=== PATIENT | female | born 1935 | race Caucasian/White ===

== ENCOUNTER → 2016-03-28 | Outpatient (CLI) | payer MEDICARE, OTHER ==
[~2016-03-28] MED LIST: REGADENOSON INJ 0.4 MG/5 ML DISP.SYRIN IV ONE
--- NOTE | 2016-03-28 14:30 | DRAGON STRESS TEST REPORT ---
INDICATION: Patient with chest pain, dyspnea PROCEDURE REPORT: Nuclear stress test explained to the patient in detail. Risks/benefits were discussed and informed consent was obtained. BASELINE: The patient's baseline heart rate was noted to be 78 bpm with BP of 155/80. Baseline EKG showed sinus rhythm, increased voltage suggestive of LVH. No Baseline ST segment changes noted. Following above being obtained, patient was bolused with regadenoson per protocol. The patient tolerated the Regadenoson bolus well without any significant complaints. At two minutes post-bolus, the patient's heart rate was 83 with BP of 129/68. At three minutes post-Regadenoson bolus, the patient's heart rate was 83 with BP of 131/72. Stress and postprocedure EKGs: EKGs obtained during the procedure and post- procedure did not show any additional STT wave changes. NUCLEAR IMAGING: Nuclear imaging was performed following a protocol. Rest imaging : was performed earlier in the day after patient was injected with a 10.72 mci of technetium sestamibi compound Stress imaging: The patient was bolused with Regadenoson 0.4 mg over 10 seconds. This was followed by normal saline bolus followed by Technetium Sestamibi injection of 33.0 mci followed again by normal saline bolus. Stress imaging was performed according to set protocol. Both rest and stress images were obtained using tomographic technique. EKG gated imaging was also obtained. NUCLEAR INTERPRETATION: Both raw and processed data were used for interpretation. Visual, qualitative, computer generated quantitative data were used. There is good myocardial uptake of Technetium compound. Motion artifact and attenuation artifacts were noted. No definitive areas of transient perfusion defect was noted. No definite fixed perfusion defect noted. EKG gated imaging showed no significant regional wall motion abnormalities. LVEF is noted to be 63. Lung/heart ratio noted to be within normal at 0.33 There is transient ischemic dilatation noted with tid ratio of 1.48. LV cavity noted to be a small which tends to magnify the changes. RV free wall uptake noted to be borderline increased. SUMMARY OF FINDINGS/IMPRESSION: 1. NO SIGNIFICANT EKG CHANGES WITH REGADENOSON BOLUS. 2. NUCLEAR IMAGES SHOWED NO DEFINITIVE AREAS OF TRANSIENT PERFUSION DEFECT OR ISCHEMIA NOTED. 3. NO DEFINITIVE FIXED DEFECTS OR SCAR NOTED. 4. EKG GATED IMAGING SHOWED NORMAL LVEF. NO DEFINITE WALL MOTION ABNORMALITIES NOTED. 5. LUNG/HEART RATIO NOTED TO BE WITHIN NORMAL LIMITS. 6. BORDERLINE TRANSIENT ISCHEMIC DILATATIONS WERE NOTED. THIS IS OF UNCERTAIN SIGNIFICANCE IN THE ABSENCE OF SIGNIFICANT PERFUSION ABNORMALITIES. MOST RECENT LITERATURE REVIEW SUGGEST NO SIGNIFICANT INCREASED RISK OF EVENTS IN THE ABSENCE OF PERFUSION ABNORMALITY. HOWEVER WOULD RECOMMEND CLOSE CARDIOLOGY FOLLOW-UP. 7. CLINICAL CORRELATION IS REQUESTED OCCASIONALLY SINGLE VESSEL DISEASE OR BALANCED ISCHEMIA COULD BE MISSED. ALSO INABILITY TO EXERCISE BY ITSELF LEADS TO INCREASED CARDIOVASCULAR EVENT RATE. STRESS TEST RESULTS WOULD ALSO NEED TO BE INTERPRETED IN THE CONTEXT OF PRETEST PROBABILITY. 8. I AM AVAILABLE FOR CARDIOLOGY CONSULTATION AND FOLLOWUP IF REQUESTED BY PMD. INTERPRETING PHYSICIAN: Bry BOSS BOARD CERTIFIED IN CARDIOVASCULAR DISEASES , NUCLEAR CARDIOLOGY, ECHOCARDIOGRAPHY [facility]
== END ==
LOC: RAD 07:28
PROVIDERS: ATTEND Internal Medicine
DX: R06.09 Other forms of dyspnea (principal)
CPT/HCPCS: 93017; 78452; A9500; J2785; Q9969

== ENCOUNTER → 2016-05-30 | Outpatient (CLI) | payer MEDICARE, OTHER ==
[2016-05-30 16:05] LABS: ABSOLUTE EOSINOPHILS # (AUTO) 0.1 10^3/uL (0.0-0.6); ABSOLUTE LYMPHOCYTES (AUTO) 1.2 10^3/uL (0.5-4.7); ABSOLUTE MONOCYTES (AUTO) 0.4 10^3/uL (0.1-1.4); ABSOLUTE NEUT (AUTO) 2.1 10^3/uL (1.7-8.2); BASOPHILS % (AUTO) 0.8 % (0-2); EOSINOPHILS % (AUTO) 1.3 % (0-6); HEMATOCRIT 37.6 % (36.0-47.0); HEMOGLOBIN 12.8 g/dL (12.0-15.5); HGB HCT DIFFERENCE 0.8; LYMPHOCYTES % (AUTO) 30.8 % (13-45); MEAN CORPUSCULAR HEMOGLOBIN 32.6 pg (27.0-33.4); MEAN CORPUSCULAR HGB CONC 34.1 g/dL (32.0-36.0); MEAN CORPUSCULAR VOLUME 96 fl (80-97); MONOCYTES % (AUTO) 11.3 % (3-13); RED BLOOD COUNT 3.93 10^6/uL (3.72-5.28); RED CELL DISTRIBUTION WIDTH 13.7 % (11.5-14.0); SEGMENTED NEUTROPHILS % (AUTO) 55.8 % (42-78); WHITE BLOOD COUNT 3.8 10^3/uL (4.0-10.5)
[2016-05-30 16:22] LABS: ALANINE AMINOTRANSFERASE 55 U/L (9-52); ALKALINE PHOSPHATASE 70 U/L (38-126); ANION GAP 9 (5-19); ASPARTATE AMINO TRANSFERASE 63 U/L (14-36); BILIRUBIN,DIRECT 0.1 mg/dL (0.0-0.4); BILIRUBIN,TOTAL 0.4 mg/dL (0.2-1.3); BLOOD UREA NITROGEN 17 mg/dL (7-20); CARBON DIOXIDE 29 mmol/L (22-30); CHLORIDE 102 mmol/L (98-107); CREATININE RESULT 0.88 mg/dL (0.52-1.25); GLUCOSE 88 mg/dL (75-110); POTASSIUM 4.1 mmol/L (3.6-5.0); SODIUM 140.1 mmol/L (137-145); TOTAL PROTEIN 6.5 g/dL (6.3-8.2)
[2016-05-30 16:53] LABS: CARCINOEMBRYONIC ANTIGEN 4.8 ng/mL (<3.0)
== END ==
LOC: OD 14:32
PROVIDERS: ATTEND Specialist
DX: R10.9 Unspecified abdominal pain (principal); R97.0 Elevated carcinoembryonic antigen [CEA]; R19.7 Diarrhea, unspecified
CPT/HCPCS: 36415; 80053; 82378; 85025

== ENCOUNTER → 2016-06-22 | Outpatient (CLI) | payer MEDICARE, OTHER | LOC: RAD 08:56 | PROVIDERS: ATTEND Thoracic Surgery (Cardiothoracic Vascular Surgery) | DX: K44.9 Diaphragmatic hernia without obstruction or gangrene (principal) | CPT/HCPCS: 74220 ==

== ENCOUNTER → 2016-08-29 | Outpatient (CLI) | payer MEDICARE, OTHER ==
--- NOTE | 2016-08-29 14:04 | RADIOLOGY REPORT (SQ) ---
EXAM DESCRIPTION: CHEST PA/LATERAL COMPLETED DATE/TIME: 08/29/2016 1:46 pm REASON FOR STUDY: COUGH,CHRONIC OBSTRUCTIVE PULMONARY DISEASE, UNSPECIFIED COMPARISON: 12/27/2015 EXAM PARAMETERS: NUMBER OF VIEWS: two views TECHNIQUE: Digital Frontal and Lateral radiographic views of the chest acquired. RADIATION DOSE: NA LIMITATIONS: none FINDINGS: LUNGS AND PLEURA: There is hyperexpansion of the lungs. There is no pulmonary infiltrate or pleural effusion. No mass is seen. MEDIASTINUM AND HILAR STRUCTURES: No masses or contour abnormalities. HEART AND VASCULAR STRUCTURES: Heart normal size. No evidence for failure. BONES: No acute findings. HARDWARE: None in the chest. OTHER: No other significant finding. IMPRESSION: Chronic lung changes with no acute cardiopulmonary disease. TECHNICAL DOCUMENTATION: JOB ID: [id number] [employer]- All Rights Reserved
[2016-08-29 14:12] LABS: ABSOLUTE EOSINOPHILS # (AUTO) 0.1 10^3/uL (0.0-0.6); ABSOLUTE LYMPHOCYTES (AUTO) 1.2 10^3/uL (0.5-4.7); ABSOLUTE MONOCYTES (AUTO) 0.4 10^3/uL (0.1-1.4); ABSOLUTE NEUT (AUTO) 2.5 10^3/uL (1.7-8.2); BASOPHILS % (AUTO) 0.8 % (0-2); EOSINOPHILS % (AUTO) 1.5 % (0-6); HEMATOCRIT 40.2 % (36.0-47.0); HEMOGLOBIN 13.3 g/dL (12.0-15.5); HGB HCT DIFFERENCE -0.3; LYMPHOCYTES % (AUTO) 27.5 % (13-45); MEAN CORPUSCULAR HEMOGLOBIN 32.7 pg (27.0-33.4); MEAN CORPUSCULAR HGB CONC 33.1 g/dL (32.0-36.0); MEAN CORPUSCULAR VOLUME 99 fl (80-97); MONOCYTES % (AUTO) 9.7 % (3-13); RED BLOOD COUNT 4.06 10^6/uL (3.72-5.28); RED CELL DISTRIBUTION WIDTH 13.8 % (11.5-14.0); SEGMENTED NEUTROPHILS % (AUTO) 60.5 % (42-78); WHITE BLOOD COUNT 4.2 10^3/uL (4.0-10.5)
[2016-08-29 14:29] LABS: ALANINE AMINOTRANSFERASE 36 U/L (9-52); ALBUMIN 4.1 g/dL (3.5-5.0); ALKALINE PHOSPHATASE 63 U/L (38-126); ANION GAP 9 (5-19); ASPARTATE AMINO TRANSFERASE 44 U/L (14-36); BILIRUBIN,DIRECT 0.3 mg/dL (0.0-0.4); BILIRUBIN,TOTAL 0.5 mg/dL (0.2-1.3); BLOOD UREA NITROGEN 18 mg/dL (7-20); CALCIUM 9.6 mg/dL (8.4-10.2); CARBON DIOXIDE 30 mmol/L (22-30); CHLORIDE 100 mmol/L (98-107); CHOLESTEROL 178.45 mg/dL (0-200); CREATININE RESULT 1.05 mg/dL (0.52-1.25); Direct HDL 93 mg/dL (>40); GLUCOSE 98 mg/dL (75-110); SODIUM 138.7 mmol/L (137-145); TOTAL PROTEIN 7.2 g/dL (6.3-8.2); TRIGLYCERIDES 100 mg/dL (<150)
[2016-08-29 14:40] LABS: DIRECT LDL 67 mg/dL (<100)
== END ==
LOC: OD 13:21
PROVIDERS: ATTEND Internal Medicine
DX: J44.9 Chronic obstructive pulmonary disease, unspecified (principal); R05 Cough; I10 Essential (primary) hypertension; K21.9 Gastro-esophageal reflux disease without esophagitis; E78.5 Hyperlipidemia, unspecified; R53.82 Chronic fatigue, unspecified
CPT/HCPCS: 36415; 71020; 80053; 80061; 84443; 85025

== ENCOUNTER → 2018-04-24 | Outpatient (CLI) | payer MEDICARE, OTHER ==
--- NOTE | 2018-04-24 18:45 | XCELERA REPORT ---
[address] [address] Transthoracic Echocardiogram Report Name: SERJIO TY Age: 82 yrs Gender: Female : 1935 Patient Status: Preadmit Patient Location: [facility] Study Date: 04/24/2018 03:00 PM Height: 61 in Weight: 98 lb BSA: 1.4 m2 Procedure: A two-dimensional transthoracic echocardiogram with color flow and Doppler was performed. Study Quality: Fair. DYSNEA. Reason For Study: DYSNEA Ordering Physician: ASIYA CARUSO Performed By: Nova Cardoso Interpretation Summary The left ventricle is normal in size. There is normal left ventricular wall thickness. LV EF is 60% The left ventricular ejection fraction is within normal limits. Doppler measurements suggest impaired left ventricular relaxation, which is associated with grade I/IV or mild diastolic dysfunction The left ventricular wall motion is normal. There is no thrombus. The right ventricle is normal in size and function. The right atrium is normal. The left atrial size is normal. The interatrial septum is intact with no evidence for an atrial septal defect. There is mild mitral annular calcification. There is no evidence of mitral valve prolapse. There is no vegetation seen on the mitral valve. There is no mitral valve stenosis. There is a trace amount of mitral regurgitation There is no aortic valvular vegetation. There is mild aortic stenosis There is a peak gradient of 15 mm of Hg. No hemodynamically significant valvular aortic stenosis. There is no LVOT obstruction. There is a mild amount of aortic regurgitation There is no tricuspid stenosis. There is a mild to moderate amount of tricuspid regurgitation RVSP is 31 mm of Hg ,with RA mean of 10.Hence no pulmonary hypertension.There probably is underestimation of the RVSP due to sampling of TR jet. There is no pulmonic valvular stenosis. There is no pulmonic valvular regurgitation. There is no pericardial effusion. MMode/2D Measurements & Calculations RVDd: 1.8 cm LVIDd: 4.2 cm FS: 27.5 % Ao root diam: 2.8 cm IVSd: 0.51 cm LVIDs: 3.1 cm EDV(Teich): Ao root area: 80.3 ml LVPWd: 0.67 cm 6.3 cm2 ESV(Teich): 37.1 ml EF(Teich): 53.8 % EDV(MOD-sp4): SV(MOD-sp4): 40.3 ml 22.7 ml ESV(MOD-sp4): 17.6 ml EF(MOD-sp4): 56.4 % Doppler Measurements & Calculations MV E max chito: MV dec slope: Ao V2 max: AI max chito: 84.4 cm/sec 182.8 cm/sec 396.8 cm/sec MV A max chito: 393.1 cm/sec2 Ao max PG: AI max P.0 mmHg 118.0 cm/sec MV dec time: 14.1 mmHg AI dec slope: MV E/A: 0.72 0.21 sec Ao V2 mean: 122.9 cm/sec 222.8 cm/sec2 Ao mean PG: AI P1/2t: 521.6 msec 7.5 mmHg Ao V2 VTI: 39.7 cm LV V1 max PG: PA V2 max: TR max chito: 2.3 mmHg 63.9 cm/sec 224.2 cm/sec LV V1 mean PG: PA max P.6 mmHg TR max P.4 mmHg 20.1 mmHg LV V1 max: 76.1 cm/sec LV V1 mean: 55.4 cm/sec LV V1 VTI: 18.0 cm Left Ventricle The left ventricle is normal in size. There is normal left ventricular wall thickness. LV EF is 60%. The left ventricular ejection fraction is within normal limits. Doppler measurements suggest impaired left ventricular relaxation, which is associated with grade I/IV or mild diastolic dysfunction. The left ventricular wall motion is normal. There is no thrombus. There is no ventricular septal defect visualized. Right Ventricle The right ventricle is normal in size and function. Atria The right atrium is normal. The left atrial size is normal. The interatrial septum is intact with no evidence for an atrial septal defect. Mitral Valve There is mild mitral annular calcification. There is no evidence of mitral valve prolapse. There is no vegetation seen on the mitral valve. There is no mitral valve stenosis. There is a trace amount of mitral regurgitation. Aortic Valve There is no aortic valvular vegetation. There is mild aortic stenosis. There is a peak gradient of 15 mm of Hg. No hemodynamically significant valvular aortic stenosis. There is no LVOT obstruction. There is a mild amount of aortic regurgitation. Tricuspid Valve There is no tricuspid stenosis. There is a mild to moderate amount of tricuspid regurgitation. RVSP is 31 mm of Hg ,with RA mean of 10.Hence no pulmonary hypertension.There probably is underestimation of the RVSP due to sampling of TR jet. Pulmonic Valve There is no pulmonic valvular stenosis. There is no pulmonic valvular regurgitation. Great Vessels The aortic root is not well visualized but is probably normal size. Effusions There is no pericardial effusion. : ASIYA CARUSO > Jazmyn Wheatley
== END ==
LOC: SP 17:04
PROVIDERS: ATTEND Internal Medicine
DX: I70.0 Atherosclerosis of aorta (principal)
CPT/HCPCS: 93306

== ENCOUNTER → 2018-05-28 | Outpatient (CLI) | payer MEDICARE, OTHER ==
[2018-05-28 16:40] LABS: ABSOLUTE LYMPHOCYTES (AUTO) 1.1 10^3/uL (0.5-4.7); ABSOLUTE MONOCYTES (AUTO) 0.3 10^3/uL (0.1-1.4); BASOPHILS % (AUTO) 0.7 % (0-2); EOSINOPHILS % (AUTO) 1.3 % (0-6); HEMATOCRIT 40.2 % (36.0-47.0); HEMOGLOBIN 13.7 g/dL (12.0-15.5); LYMPHOCYTES % (AUTO) 30.6 % (13-45); MEAN CORPUSCULAR HGB CONC 34.2 g/dL (32.0-36.0); MEAN CORPUSCULAR VOLUME 99 fl (80-97); MONOCYTES % (AUTO) 9.7 % (3-13); PLATELET COUNT 145 10^3/uL (150-450); RED BLOOD COUNT 4.04 10^6/uL (3.72-5.28); RED CELL DISTRIBUTION WIDTH 13.4 % (11.5-14.0); SEGMENTED NEUTROPHILS % (AUTO) 57.7 % (42-78); TOTAL CELLS COUNTED % (AUTO) 100 %; WHITE BLOOD COUNT 3.5 10^3/uL (4.0-10.5)
[2018-05-28 16:49] LABS: ALANINE AMINOTRANSFERASE 28 U/L (9-52); ALBUMIN 4.1 g/dL (3.5-5.0); ALKALINE PHOSPHATASE 50 U/L (38-126); ANION GAP 9 (5-19); ASPARTATE AMINO TRANSFERASE 36 U/L (14-36); BILIRUBIN,DIRECT 0.3 mg/dL (0.0-0.4); BILIRUBIN,TOTAL 0.6 mg/dL (0.2-1.3); BLOOD UREA NITROGEN 21 mg/dL (7-20); CALCIUM 9.9 mg/dL (8.4-10.2); CARBON DIOXIDE 30 mmol/L (22-30); CHLORIDE 100 mmol/L (98-107); CHOLESTEROL 155.37 mg/dL (0-200); GLUCOSE 81 mg/dL (75-110); POTASSIUM 4.3 mmol/L (3.6-5.0); SODIUM 139.2 mmol/L (137-145); TOTAL PROTEIN 6.9 g/dL (6.3-8.2); TRIGLYCERIDES 60 mg/dL (<150)
[2018-05-28 17:00] LABS: DIRECT LDL 51 mg/dL (<100)
== END ==
LOC: OD 14:23
PROVIDERS: ATTEND Internal Medicine
DX: I10 Essential (primary) hypertension (principal); R53.83 Other fatigue; K21.9 Gastro-esophageal reflux disease without esophagitis
CPT/HCPCS: 36415; 80053; 80061; 84443; 85025

== ENCOUNTER 2018-08-27 23:02 | Emergency (ER) | payer MEDICARE, OTHER ==
--- NOTE | 2018-08-27 23:54 | ER Document Report ---
ED General - General Chief Complaint: Breathing Difficulty Stated Complaint: TROUBLE BREATHING Time Seen by Provider: 08/27/18 23:54 Primary Care Provider: ASIYA CARUSO MD [Primary Care Provider] - Follow up tomorrow IRMA DIEZ MD [ACTIVE STAFF] - Follow up tomorrow Notes: Patient is a 83-year-old female with history of COPD that presents to the emergency department for chief complaint of shortness of breath and cough. Patient states she is been short of breath for some time, but her son thought it was a little bit worse this evening, and he convinced her to come to the emergency department. She has been noncompliant, does not use any inhalers, she takes medication for her anxiety. She denies having any chest pain, fevers, chills, night sweats, nausea, vomiting or abdominal pain. Overall she states she feels well at this time, does not feel that the shortness of breath is particularly worse than usual. Past Medical History: COPD, anxiety, history of paroxysmal SVT, history of esophageal cancer Past Surgical History: Esophagectomy Social History: Former smoker, denies alcohol or drug use. Family History: Reviewed and noncontributory for presenting illness Allergies: Reviewed, see documented allergy list. REVIEW OF SYSTEMS: Other than noted above, the 12 point review of systems was reviewed with the patient and were negative, all pertinent findings are included in the HPI. PHYSICAL EXAMINATION: Vital signs reviewed, nursing noted reviewed. GENERAL: Elderly female, no acute distress, no respiratory distress. HEAD: Atraumatic, normocephalic. EYES: Eyes appear normal, extraocular movements intact, sclera anicteric, conjunctiva are normal. ENT: nares patent, oropharynx clear without exudates. Moist mucous membranes. NECK: Normal range of motion, supple without lymphadenopathy LUNGS: Expiratory wheezing noted throughout all lung [place], but no acute respiratory distress associated. HEART: Heart rate tachycardic, regular rhythm, plus 2/6 systolic murmur. ABDOMEN: Soft, nontender, normoactive bowel sounds. No rebound, guarding, or rigidity. No masses appreciated. EXTREMITIES: Nontender, good range of motion, no pitting or edema. NEUROLOGICAL: No focal neurological deficits. Moves all extremities spontaneously Motor and sensory grossly intact on exam. PSYCH: Normal mood, normal affect. SKIN: Warm, Dry, normal turgor, no rashes or lesions noted on exposed skin TRAVEL OUTSIDE OF THE [place] IN LAST 30 DAYS: No - Related Data Allergies/Adverse Reactions: Sulfa (Sulfonamide Antibiotics) Allergy (Verified 01/31/15 08:59) Past Medical History - Social History Smoking Status: Former Smoker Family History: Reviewed & Not Pertinent, Malignancy - Mother with colon cancer - Past Medical History Cardiac Medical History: Reports: Hx Atrial Fibrillation, Hx Hypercholesterolemia Denies: Hx Coronary Artery Disease, Hx Heart Attack, Hx Hypertension Pulmonary Medical History: Reports: Hx COPD, Hx Pneumonia Denies: Hx Asthma, Hx Bronchitis Neurological Medical History: Denies: Hx Cerebrovascular Accident, Hx Seizures GI Medical History: Reports: Hx Gastroesophageal Reflux Disease Musculoskeletal Medical History: 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 Laboratory data and/or imaging were ordered as appropriate for the patient's presenting symptoms and complaint, with consideration of any critical or life threatening conditions that may be associated with their obtained history and exam as noted above. Patient was treated with DuoNeb breathing treatments x2, IV Solu-Medrol Results were reviewed when available and demonstrated very mild hyponatremia, otherwise unremarkable, chest x-ray demonstrated mild pleural effusions as a possible edema, no focal infiltrates The patient was re-evaluated and was feeling improved, lung sounds improved, intermittently on the monitor, the patient was going into what looks like either an SVT versus MAT, EKG obtained, one demonstrating multifocal atrial tachycardia, and the other demonstrated possible SVT, then the patient go back into normal sinus rhythm very quickly, likely stimulated from albuterol, patient is supposed to be on Cardizem, I asked her about this and she states she stopped taking it, did not have a reason why other than she just wanted to stop taking it. Evaluation was most consistent with COPD exacerbation, multifocal atrial tachycardia, patient was restarted on her Cardizem, given 120 mg dose, and dispensed albuterol inhaler, and given a prescription for the Cardizem to start taking for the next 2 weeks, she is strongly encouraged to follow-up with her primary care, and advised if her symptoms worsen or do not improve to return to the emergency department, she is also given a prescription for prednisone for 4 additional days. Results were discussed with the patient at this point, after careful consideration I feel that that patient can be discharged from the emergency department, the patient was educated treatments and reasons to return to the emergency department based on their presumed diagnosis as noted above, they were advised to followup with a primary care physician in 2-3 days. Patient was agreeable to plan of care. *Note is created using voice recognition software and may contain spelling, syntax or grammatical errors. Laboratory 08/28/18 08/28/18 08/28/18 00:37 00:37 00:37 WBC 7.3 RBC 4.04 Hgb 13.8 Hct 40.5 MCV 100 H MCH 34.1 H MCHC 34.0 RDW 14.7 H Plt Count 132 L Seg Neutrophils % 79.4 H Lymphocytes % 9.8 L Monocytes % 10.3 Eosinophils % 0.0 Basophils % 0.5 Absolute Neutrophils 5.8 Absolute Lymphocytes 0.7 Absolute Monocytes 0.8 Absolute Eosinophils 0.0 Absolute Basophils 0.0 Sodium 133.7 L Potassium 3.9 Chloride 96 L Carbon Dioxide 27 Anion Gap 11 BUN 11 Creatinine 0.65 Est GFR ( Amer) > 60 Est GFR (Non-Af Amer) > 60 Glucose 141 H Calcium 9.1 Total Bilirubin 1.0 Direct Bilirubin 0.2 Neonat Total Bilirubin Not Reportable Neonat Direct Bilirubin Not Reportable Neonat Indirect Bili Not Reportable AST 32 ALT 17 Alkaline Phosphatase 64 Troponin I < 0.012 Total Protein 7.1 Albumin 4.1 Chest X-Ray 08/28/18 00:14 IMPRESSION: Cardiomegaly with mild interstitial edema, tiny effusions and/or pleural thickening. copyright 2010 [employer]- All Rights Reserved - Vital Signs Vital signs: Temp Pulse Resp BP Pulse Ox 100 F 103 H 30 H 151/119 H 93 08/27/18 23:08/27/18 23:08/27/18 23:08/27/18 23:09 08/28/18 00:38 - Laboratory Result Diagrams: 08/28/18 00:37 08/28/18 00:37 Laboratory results interpreted by me: 08/28/18 08/28/18 00:37 00:37 MCV 100 H MCH 34.1 H RDW 14.7 H Plt Count 132 L Seg Neutrophils % 79.4 H Lymphocytes % 9.8 L Sodium 133.7 L Chloride 96 L Glucose 141 H - EKG Interpretation by Me Additional EKG results interpreted by me: EKG demonstrates sinus rhythm with first-degree AV block with a MN interval of 212 ms, left axis deviation, QTC 455 ms, no ST elevation noted, this is compared to prior EKG from 12/27/2015, without significant change. 08/28/18 01:40 Repeat EKG performed as patient was becoming tachycardic on the monitor intermittently, his EKG demonstrates multifocal atrial tachycardia, with a ventricular rate of 165 bpm, left axis deviation, QTC prolonged at 530 milliseconds, no ST elevation Discharge - Discharge Clinical Impression: COPD with acute exacerbation, Multifocal atrial tachycardia Condition: Stable Disposition: HOME, SELF-CARE Instructions: Chronic Obstructive Lung Disease ([facility]) Additional Instructions: Please take all medications as prescribed including the blood pressure and heart rate medication as directed, you need to follow-up with a primary care physician to manage these conditions as they are chronic conditions, start using the inhaler, 2 puffs 4 times daily, for the next 3 to 5 days, then every 4-6 hours as needed. Please start taking the prednisone, 40 mg daily for the next 4 days. Prescriptions: Diltiazem HCl [Cardizem Cd 120 mg Capsule] 1 cap.sr PO DAILY #15 cap.sr Prednisone [Deltasone 10 mg Tablet] 40 mg PO DAILY #16 tablet Referrals: ASIYA CARUSO MD [Primary Care Provider] - Follow up tomorrow IRMA DIEZ MD [ACTIVE STAFF] - Follow up tomorrow
[2018-08-28] MEDS ORDERED: METHYLPREDNISOLONE INJ 125 MG/2 ML SDV IV ONE (00:14)
[2018-08-28] MEDS ORDERED: IPRATROPIUM/ALBUTEROL 0.5-2.5 MG/3 ML AMPUL NEB ONE (00:14)
--- NOTE | 2018-08-28 00:43 | RADIOLOGY REPORT (SQ) ---
EXAM DESCRIPTION: XR CHEST 1 VIEW COMPLETED DATE/TME: 08/28/2018 00:14 CLINICAL HISTORY: 83 years, Female, shortness of breath COMPARISON: 08/29/2016 chest NUMBER OF VIEWS: 1 TECHNIQUE: Chest LIMITATIONS: None. FINDINGS: Stable cardiomegaly. Atheromatous change thoracic aorta. Osteopenia. Mild interstitial edema. Tiny bibasilar effusions and/or pleural thickening. No pneumothorax IMPRESSION: Cardiomegaly with mild interstitial edema, tiny effusions and/or pleural thickening. copyright 2010 [employer]- All Rights Reserved
[2018-08-28 00:47] LABS: ABSOLUTE LYMPHOCYTES (AUTO) 0.7 10^3/uL (0.5-4.7); ABSOLUTE MONOCYTES (AUTO) 0.8 10^3/uL (0.1-1.4); ABSOLUTE NEUT (AUTO) 5.8 10^3/uL (1.7-8.2); BASOPHILS % (AUTO) 0.5 % (0-2); HEMATOCRIT 40.5 % (36.0-47.0); HEMOGLOBIN 13.8 g/dL (12.0-15.5); LYMPHOCYTES % (AUTO) 9.8 % (13-45); MEAN CORPUSCULAR HEMOGLOBIN 34.1 pg (27.0-33.4); MEAN CORPUSCULAR VOLUME 100 fl (80-97); MONOCYTES % (AUTO) 10.3 % (3-13); PLATELET COUNT 132 10^3/uL (150-450); RED BLOOD COUNT 4.04 10^6/uL (3.72-5.28); RED CELL DISTRIBUTION WIDTH 14.7 % (11.5-14.0); SEGMENTED NEUTROPHILS % (AUTO) 79.4 % (42-78); TOTAL CELLS COUNTED % (AUTO) 100 %; WHITE BLOOD COUNT 7.3 10^3/uL (4.0-10.5)
[2018-08-28 01:05] LABS: ALANINE AMINOTRANSFERASE 17 U/L (9-52); ALBUMIN 4.1 g/dL (3.5-5.0); ALKALINE PHOSPHATASE 64 U/L (38-126); ANION GAP 11 (5-19); ASPARTATE AMINO TRANSFERASE 32 U/L (14-36); BILIRUBIN,DIRECT 0.2 mg/dL (0.0-0.4); BLOOD UREA NITROGEN 11 mg/dL (7-20); CALCIUM 9.1 mg/dL (8.4-10.2); CARBON DIOXIDE 27 mmol/L (22-30); CHLORIDE 96 mmol/L (98-107); GLUCOSE 141 mg/dL (75-110); POTASSIUM 3.9 mmol/L (3.6-5.0); SODIUM 133.7 mmol/L (137-145); TOTAL PROTEIN 7.1 g/dL (6.3-8.2)
[2018-08-28] MEDS ORDERED: ALBUTEROL SULFATE HFA (90 MCG/PUFF) 8 GM MDI (1 MDI/ER DISP) IH ONE ×2 (01:49→04:11)
[2018-08-28] MEDS ORDERED: DILTIAZEM HCL 120 MG CAP.SR.24H PO ONE (01:49)
[2018-08-28] MEDS ORDERED: MAGNESIUM SULFATE/D5W 1 GM/100 ML RTUPB IV ONE ×2 (01:59→02:00)
[2018-08-28 04:14] VITALS: BP 106/64
--- NOTE | 2018-08-28 23:10 | EKG REPORT ---
SEVERITY:- ABNORMAL ECG - A FIB WITH RVR LEFT ANTERIOR FASCICULAR BLOCK REPOLARIZATION ABNORMALITY, PROB RATE RELATED : Confirmed by: Gumaro Tamayo 28-Aug-2018 23:09:33
--- NOTE | 2018-08-28 23:10 | EKG REPORT ---
SEVERITY:- ABNORMAL ECG - SUPRAVENTRICULAR TACHYCARDIA WITH CONVERSION TO SINUS LEFT ANTERIOR FASCICULAR BLOCK REPOLARIZATION ABNORMALITY, PROB RATE RELATED : Confirmed by: Gumaro Tamayo 28-Aug-2018 23:10:28
--- NOTE | 2018-08-28 23:11 | EKG REPORT ---
SEVERITY:- ABNORMAL ECG - SINUS RHYTHM PROBABLE LEFT ATRIAL ABNORMALITY LEFT ANTERIOR FASCICULAR BLOCK PROBABLE LEFT VENTRICULAR HYPERTROPHY : Confirmed by: Gumaro Tamayo 28-Aug-2018 23:10:40
== END 2018-08-28 04:26 | disposition home or self-care (01) ==
LOC: ER 23:02
DX: J44.1 Chronic obstructive pulmonary disease with (acute) exacerbation (principal); I47.1 Supraventricular tachycardia; T46.1X6A Underdosing of calcium-channel blockers, initial encounter; Z91.128 Patient's intentional underdosing of medication regimen for other reason; Z91.14 Patient's other noncompliance with medication regimen; I44.0 Atrioventricular block, first degree; J90 Pleural effusion, not elsewhere classified; E87.6 Hypokalemia; R06.02 Shortness of breath; R05 Cough; F41.9 Anxiety disorder, unspecified; Z79.899 Other long term (current) drug therapy; Z85.01 Personal history of malignant neoplasm of esophagus; Z87.891 Personal history of nicotine dependence; Z87.01 Personal history of pneumonia (recurrent); Z88.2 Allergy status to sulfonamides
CPT/HCPCS: 93005 ×2; 94640; 99285; 96375; 96365; 36415; 85025; 80053; 84484; 71045; 93010 ×2; A9270 ×2; J2930; J3475; J7620

== ENCOUNTER 2018-09-03 17:06 | Inpatient (IN) | payer MEDICARE, OTHER ==
--- NOTE | 2018-09-03 17:27 | ER Document Report ---
ED Medical Screen (RME) - General Chief Complaint: Fever Stated Complaint: FEVER, COUGH, CONGESTION Time Seen by Provider: 09/03/18 17:21 Primary Care Provider: ASIYA CARUSO MD [Primary Care Provider] - Follow up as needed Mode of Arrival: Ambulatory Information source: Patient TRAVEL OUTSIDE OF THE [place] IN LAST 30 DAYS: No - HPI Notes: 09/03/18 17:27 83-year-old female presents to the ED with complaints of having fever, SOB, cough, left-sided chest pain for the last week. Patient does have a history of COPD, does not see a provider for this, eating and drinking without issues, no nausea vomiting or diarrhea. Patient reports productive cough. tried [id number] NyQuil without relief. Worse with time, nothing makes better. Denies history of asthma. ROS: Other than noted above, the 12 point review of systems was reviewed with the patient and were negative, all pertinent findings are included in the HPI. PHYSICAL EXAMINATION: Vital signs reviewed. GENERAL: Well-appearing, well-nourished and in no acute distress. HEAD: Atraumatic, normocephalic. NECK: Normal range of motion CV: Heart regular rate and rhythm LUNGS: Diminished lung sounds in upper bases ABD: generalized abd pain Musculoskeletal: Normal range of motion NEUROLOGICAL: Normal speech PSYCH: Normal mood, normal affect. MDM: Patient seen and examined for rapid initial assessment. Vital signs reviewed. A comprehensive ED assessment and evaluation of the patient, analysis of test results and completion of the medical decision making process will be conducted by additional ED providers. *Note is created using voice recognition software and may contain spelling, syntax or grammatical errors. - Related Data Allergies/Adverse Reactions: Sulfa (Sulfonamide Antibiotics) Allergy (Verified 09/03/18 17:09) Past Medical History - Past Medical History Cardiac Medical History: Reports: Hx Atrial Fibrillation, Hx Hypercholesterolemia Denies: Hx Coronary Artery Disease, Hx Heart Attack, Hx Hypertension Pulmonary Medical History: Reports: Hx COPD, Hx Pneumonia Denies: Hx Asthma, Hx Bronchitis Neurological Medical History: Denies: Hx Cerebrovascular Accident, Hx Seizures Renal/ Medical History: Denies: Hx Peritoneal Dialysis GI Medical History: Reports: Hx Gastroesophageal Reflux Disease Musculoskeltal Medical History: 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 Psychiatric Medical History: Reports: Hx Dementia, Hx Depression Past Surgical History: Reports: Hx Appendectomy, Hx Cholecystectomy, Hx Orthopedic Surgery - Right tibia ORIF - Immunizations Hx Diphtheria, Pertussis, Tetanus Vaccination: Yes Physical Exam - Vital signs Vitals: Temp Pulse Resp BP Pulse Ox 98.1 F 100 18 115/66 91 L 09/03/18 17:14 09/03/18 17:14 09/03/18 17:14 09/03/18 17:14 09/03/18 17:14 Course - Vital Signs Vital signs: Temp Pulse Resp BP Pulse Ox 98.1 F 100 18 115/66 91 L 09/03/18 17:14 09/03/18 17:14 09/03/18 17:14 09/03/18 17:14 09/03/18 17:14 Doctor's Discharge - Discharge Referrals: ASIYA CARUSO MD [Primary Care Provider] - Follow up as needed
[2018-09-03] MEDS ORDERED: IPRATROPIUM/ALBUTEROL 0.5-2.5 MG/3 ML AMPUL NEB ONE (17:36)
--- NOTE | 2018-09-03 17:51 | RADIOLOGY REPORT (SQ) ---
EXAM DESCRIPTION: CHEST 2 VIEWS COMPLETED DATE/TIME: 09/03/2018 5:39 pm REASON FOR STUDY: cough, fevers x 1 week COMPARISON: 08/28/2018 EXAM PARAMETERS: NUMBER OF VIEWS: two views TECHNIQUE: Digital Frontal and Lateral radiographic views of the chest acquired. RADIATION DOSE: NA LIMITATIONS: none FINDINGS: LUNGS AND PLEURA: There is ill-defined increased opacification in the right lung compared to the left. There is blunting of the right costophrenic angle. On the lateral view there is opacif ication in the posterior aspect of the right upper lobe and in the right middle lobe. MEDIASTINUM AND HILAR STRUCTURES: No masses or contour abnormalities. HEART AND VASCULAR STRUCTURES: Heart normal size. No evidence for failure. BONES: No acute findings. HARDWARE: None in the chest. OTHER: No other significant finding. IMPRESSION: Pneumonia in the right upper lobe and right middle lobe. Possible atypical pneumonia. TECHNICAL DOCUMENTATION: JOB ID: [id number] [employer]- All Rights Reserved Reading location - IP/workstation name: [email or web address]
[2018-09-03] MEDS ORDERED: LEVOFLOXACIN 750 MG/D5W RTU 750 MG/150 ML RTUPB IV ONE (18:13)
[2018-09-03 18:41] LABS: ABSOLUTE LYMPHOCYTES (AUTO) 1.3 10^3/uL (0.5-4.7); ABSOLUTE MONOCYTES (AUTO) 1.2 10^3/uL (0.1-1.4); ABSOLUTE NEUT (AUTO) 9.2 10^3/uL (1.7-8.2); BASOPHILS % (AUTO) 0.1 % (0-2); HEMATOCRIT 41.6 % (36.0-47.0); HEMOGLOBIN 13.9 g/dL (12.0-15.5); LYMPHOCYTES % (AUTO) 11.2 % (13-45); MEAN CORPUSCULAR HEMOGLOBIN 33.8 pg (27.0-33.4); MEAN CORPUSCULAR HGB CONC 33.5 g/dL (32.0-36.0); MEAN CORPUSCULAR VOLUME 101 fl (80-97); MONOCYTES % (AUTO) 9.9 % (3-13); PLATELET COUNT 303 10^3/uL (150-450); RED BLOOD COUNT 4.11 10^6/uL (3.72-5.28); RED CELL DISTRIBUTION WIDTH 14.7 % (11.5-14.0); SEGMENTED NEUTROPHILS % (AUTO) 78.8 % (42-78); TOTAL CELLS COUNTED % (AUTO) 100 %; WHITE BLOOD COUNT 11.7 10^3/uL (4.0-10.5)
[2018-09-03 18:56] LABS: ALANINE AMINOTRANSFERASE 17 U/L (9-52); ALBUMIN 3.2 g/dL (3.5-5.0); ALKALINE PHOSPHATASE 98 U/L (38-126); ANION GAP 10 (5-19); ASPARTATE AMINO TRANSFERASE 18 U/L (14-36); BILIRUBIN,DIRECT 0.3 mg/dL (0.0-0.4); BILIRUBIN,TOTAL 0.8 mg/dL (0.2-1.3); BLOOD UREA NITROGEN 16 mg/dL (7-20); CALCIUM 8.7 mg/dL (8.4-10.2); CARBON DIOXIDE 31 mmol/L (22-30); CHLORIDE 92 mmol/L (98-107); GLUCOSE 127 mg/dL (75-110); POTASSIUM 3.7 mmol/L (3.6-5.0); SODIUM 132.9 mmol/L (137-145)
[2018-09-03 18:58] LABS: CREATINE KINASE < 20 U/L (30-135)
[2018-09-03 19:17] LABS: CREATINE KINASE MB 0.28 ng/mL (<4.55); TROPONIN I 0.017 ng/mL
[2018-09-03] MEDS ORDERED: DOXYCYCLINE HYCLATE 100 MG TABLET PO ONE (23:02)
[2018-09-03] MEDS ORDERED: NORMAL SALINE 1000 ML 1,000 ML IV ONE (23:03)
--- NOTE | 2018-09-03 23:29 | ER Document Report ---
ED General - General Chief Complaint: Fever Stated Complaint: FEVER, COUGH, CONGESTION Time Seen by Provider: 09/03/18 17:21 Mode of Arrival: Ambulatory Notes: Patient is a pleasant 83-year-old female who presents with complaint of 1 week of worsening cough and fevers. She says her cough worsens she is from feel shor t of breath and therefore she came to the ER today. She is seeing her primary care doctor for symptoms. She is followed by Dr. Agee. She denies any chest pain. She denies abdominal pain. No nausea vomiting. She says sometimes her cough is productive of yellowish type sputum. Is not a smoker. TRAVEL OUTSIDE OF THE [place] IN LAST 30 DAYS: No - Related Data Allergies/Adverse Reactions: Sulfa (Sulfonamide Antibiotics) Allergy (Verified 09/03/18 17:09) Past Medical History - General Information source: Patient - Social History Smoking Status: Unknown if Ever Smoked Chew tobacco use (# tins/day): No Frequency of alcohol use: None Drug Abuse: None Family History: Reviewed & Not Pertinent, Malignancy - Mother with colon cancer Patient has suicidal ideation: No Patient has homicidal ideation: No - Past Medical History Cardiac Medical History: Reports: Hx Atrial Fibrillation, Hx Hypercholesterolemia Denies: Hx Coronary Artery Disease, Hx Heart Attack, Hx Hypertension Pulmonary Medical History: Reports: Hx COPD, Hx Pneumonia Denies: Hx Asthma, Hx Bronchitis Neurological Medical History: Denies: Hx Cerebrovascular Accident, Hx Seizures Renal/ Medical History: Denies: Hx Peritoneal Dialysis GI Medical History: Reports: Hx Gastroesophageal Reflux Disease Musculoskeletal Medical History: 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 Denies nasal or sinus congestion. CARDIOVASCULAR: Denies chest pain. RESPIRATORY: cough, difficulty breathing. GASTROINTESTINAL: Denies abdominal pain. Denies nausea, vomiting, or diarrhea. GENITOURINARY: Denies difficulty urinating, painful urination, burning, frequency, or blood in urine. MUSCULOSKELETAL: Denies neck or back pain or joint pain or swelling. SKIN: Denies rash or skin lesions. NEUROLOGICAL: Denies altered mental status or loss of consciousness. Denies headache. Denies weakness or paralysis or loss of use of either side. Denies problems with gait or speech. Denies sensory or motor loss. ALL OTHER SYSTEMS REVIEWED AND NEGATIVE. Physical Exam - Vital signs Vitals: Temp Pulse Resp BP Pulse Ox 98.1 F 100 18 115/66 91 L 09/03/18 17:14 09/03/18 17:14 09/03/18 17:14 09/03/18 17:14 09/03/18 17:14 - Notes Notes: General Appearance: Well nourished, alert, cooperative, no acute distress, no obvious discomfort. Vitals: reviewed, See vital signs table. Eyes: PERRL, EOMI, Conjuctiva clear Mouth: No decreasd moisture Throat: No tonsillar inflammation, No airway obstruction, No lymphadenopathy Neck: Supple, no neck tenderness, No thyromegaly Lungs: No wheezing, No rales, No rhonci, No accessory muscle use, good air exchange bilaterally. Heart: Normal rate, Regular rythm, No murmur, no rub Abdomen: Normal BS, soft, No rigidity, No abdominal tenderness, No guarding, no rebound, no abdominal masses, no organomegaly Extremities: good pulses in all extremities, no swelling or tenderness in the extremities, no edema. Skin: warm, dry, appropriate color, no rash Neuro: speech clear, oriented x 3, normal affect, responds appropriately to questions. Course - Re-evaluation Re-evalutation: 09/04/18 01:26 I feel that observation patient is appropriate for the patient being that she is 83 years old with pneumonia involving almost the complete right side along with elevated lactic acid and oxygen saturation is between 89 to 93% while at rest on room air. I did place her on 2 L nasal cannula. I have started doxycycline as she has not had any recent hospitalizations and therefore is a community acquired pneumonia. Patient agrees with plan for admission. I did speak with Dr. Garrido who agrees to evaluate the patient for admission. Dictation of this chart was performed using voice recognition software; therefore, there may be some unintended grammatical errors. - Vital Signs Vital signs: Temp Pulse Resp BP Pulse Ox 98.1 F 100 20 123/62 92 09/03/18 17:14 09/03/18 17:14 09/04/18 02:01 09/04/18 02:01 09/04/18 02:01 - Laboratory Result Diagrams: 09/03/18 18:16 09/03/18 18:16 Laboratory results interpreted by me: 09/03/18 09/03/18 09/03/18 18:16 18:16 19:35 WBC 11.7 H MCV 101 H MCH 33.8 H RDW 14.7 H Seg Neutrophils % 78.8 H Lymphocytes % 11.2 L Absolute Neutrophils 9.2 H Sodium 132.9 L Chloride 92 L Carbon Dioxide 31 H Glucose 127 H Lactic Acid 2.5 H Creatine Kinase < 20 L Total Protein 6.0 L Albumin 3.2 L - EKG Interpretation by Me Additional EKG results interpreted by me: 09/03/18 23:28 EKG shows regular sinus rhythm with a rate of [address] segment elevation or depression. A lot of baseline artifact. AR interval, QRS duration are within normal range. QTc interval is prolonged. Discharge - Discharge Clinical Impression: Pneumonia Qualifiers: Pneumonia type: due to unspecified organism Laterality: right Lung location: unspecified part of lung Qualified Code(s): J18.9 - Pneumonia, unspecified [facility] Condition: Stable Disposition: ADMITTED OBSERVATION Admitting Provider: Hema (Hospitalist) Unit Admitted: Telemetry
[2018-09-04] MEDS ORDERED: IPRATROPIUM/ALBUTEROL 0.5-2.5 MG/3 ML AMPUL NEB PRN (01:34)
[2018-09-04] MEDS ORDERED: HYDRALAZINE HCL INJ/PF 20 MG/1 ML SDV IV PRN (01:34)
[2018-09-04] MEDS ORDERED: NORMAL SALINE 1000 ML 1,000 ML IV PRN (01:45)
[2018-09-04] MEDS ORDERED: AZITHROMYCIN INJ 500 MG VIAL IV PRN (02:00)
[2018-09-04 02:29] LABS: ABSOLUTE RETICS # 0.074 10^6/uL (0.028-0.122); RETICULOCYTE COUNT (AUTO) 1.74 % (0.66-2.85)
[2018-09-04] MEDS ORDERED: AZITHROMYCIN 500 MG in DEXTROSE 5%-WATER 250 ML IV ONE (03:00)
[2018-09-04 03:13] LABS: IRON(TIBC) 19.8 ug/dL (37-170)
--- NOTE | 2018-09-04 05:02 | PDOC H&P ---
History of Present Illness Admission Date/PCP: 09/04/18 01:32 ASIYA CARUSO MD Patient complains of: Shortness of breath History of Present Illness: SERJIO TY is a 83 year old female with a past medical history of COPD, chronic severe regurgitation, remote esophageal cancer with resection. Patient presents with a week of nonproductive cough and fever prompting evaluation emergency room where she is found to have hypotension, tachycardia, leukocytosis and right-sided pneumonia. She started on empiric antibiotics and referred to the hospitalist for admission. Patient denies recent change in medications. She does admit to uncontrolled GERD. Past Medical History Cardiac Medical History: Reports: Atrial Fibrillation, Hyperlipidema Denies: Coronary Artery Disease, Myocardial Infarction, Hypertension Pulmonary Medical History: Reports: Chronic Obstructive Pulmonary Disease (COPD), Pneumonia Denies: Asthma, Bronchitis Neurological Medical History: Denies: Seizures Endocrine Medical History: Reports: None Renal/ Medical History: Reports: None GI Medical History: Reports: Gastroesophageal Reflux Disease Musculoskeltal Medical History: Reports: Arthritis - Wrist Psychiatric Medical History: Reports: Dementia, Depression Hematology: Denies: Anemia Past Surgical History Past Surgical History: Reports: Appendectomy, Cholecystectomy, Orthopedic White rgery - Right tibia ORIF Social History Information Source: Patient, [facility] Records Lives with: Alone Smoking Status: Unknown if Ever Smoked Frequency of Alcohol Use: Rare Hx Recreational Drug Use: No Drugs: None Hx Prescription Drug Abuse: No - Advance Directive Resuscitation Status: Full Code Family History Family History: COPD, Malignancy - Mother with colon cancer Parental Family History Reviewed: Yes Children Family History Reviewed: Yes Sibling(s) Family History Reviewed.: Yes Medication/Allergy Home Medications: Buspirone HCl 10 mg PO DAILY 07/14/12 Diltiazem HCl [Taztia Xt] 120 mg PO DAILY 07/14/12 Multivitamin [Multi-Vitamin Daily] 1 each PO DAILY 07/14/12 Paroxetine HCl [Paxil 20 mg Tablet] 20 mg PO DAILY 07/14/12 Promethazine HCl 25 mg PO DAILY PRN 07/14/12 Simvastatin 40 mg PO DAILY 07/14/12 Fexofenadine HCl [Azul] 180 mg PO PRN PRN 12/27/15 Docusate Sodium [Colace 100 mg Capsule] 100 mg PO Q12 #0 capsule 12/30/15 Hydromorphone HCl [Dilaudid 2 mg Tablet] 1 mg PO Q4HP PRN #90 tablet 12/30/15 Ibuprofen [Motrin 800 mg Tablet] 800 mg PO Q8HP PRN #60 tablet 12/30/15 Methylprednisolone [Medrol Dosepack (4 mg/Tab) 21 Tab/Dosepak] 1 tab PO BID@0800,2200 #0 dspk 12/30/15 Methylprednisolone [Medrol Dosepack (4 mg/Tab) 21 Tab/Dosepak] 1 tab PO MEALSHS #0 dspk 12/30/15 Methylprednisolone [Medrol Dosepack (4 mg/Tab) 21 Tab/Dosepak] 1 tab PO QAM@0800 #0 dspk 12/30/15 Methylprednisolone [Medrol Dosepack (4 mg/Tab) 21 Tab/Dosepak] 1 tab PO TID@0800,1300,1800 #0 dspk 12/30/15 Methylprednisolone [Medrol Dosepack (4 mg/Tab) 21 Tab/Dosepak] 1 tab PO TID@0800,1300,1800 #0 dspk 12/30/15 Methylprednisolone [Medrol Dosepack (4 mg/Tab) 21 Tab/Dosepak] 2 tab PO QHS #0 dspk 12/30/15 Diltiazem HCl [Cardizem Cd 120 mg Capsule] 1 cap.sr PO DAILY #15 cap.sr 08/28/18 Prednisone [Deltasone 10 mg Tablet] 40 mg PO DAILY #16 tablet 08/28/18 Allergies/Adverse Reactions: Sulfa (Sulfonamide Antibiotics) Allergy (Verified 09/03/18 17:09) Review of Systems Constitutional: ABSENT: chills, fever(s), headache(s), weight gain, weight loss Eyes: ABSENT: visual disturbances Ears: ABSENT: hearing changes Cardiovascular: ABSENT: chest pain, dyspnea on exertion, edema, orthropnea, palpitations Respiratory: ABSENT: cough, hemoptysis Gastrointestinal: ABSENT: abdominal pain, constipation, diarrhea, hematemesis, hematochezia, nausea, vomiting Genitourinary: ABSENT: dysuria, hematuria Musculoskeletal: ABSENT: joint swelling Integumentary: ABSENT: rash, wounds Neurological: ABSENT: abnormal gait, abnormal speech, confusion, dizziness, focal weakness, syncope Psychiatric: ABSENT: anxiety, depression, homidical ideation, suicidal ideation Endocrine: ABSENT: cold intolerance, heat intolerance, polydipsia, polyuria Hematologic/Lymphatic: ABSENT: easy bleeding, easy bruising Physical Exam Vital Signs: Temp Pulse Resp BP Pulse Ox 98.1 F 100 20 123/62 92 09/03/18 17:14 09/03/18 17:14 09/04/18 02:01 09/04/18 02:01 09/04/18 02:01 Intake & Output 09/02/18 09/03/18 09/04/18 11:59 11:59 11:59 Intake Total 150 Balance 150 Weight 43.9 kg General appearance: PRESENT: cooperative, mild distress, thin, well-developed, well-nourished Head exam: PRESENT: atraumatic, normocephalic Eye exam: PRESENT: conjunctiva pink, EOMI, PERRLA. ABSENT: scleral icterus Ear exam: PRESENT: normal external ear exam Mouth exam: PRESENT: moist, tongue midline Neck exam: ABSENT: carotid bruit, JVD, lymphadenopathy, thyromegaly Respiratory exam: PRESENT: accessory muscle use, crackles, prolonged expiratory phas, rales, retraction, tachypnea Cardiovascular exam: PRESENT: RRR. ABSENT: diastolic murmur, rubs, systolic murmur Pulses: PRESENT: normal carotid pulses Vascular exam: PRESENT: normal capillary refill GI/Abdominal exam: PRESENT: normal bowel sounds, soft. ABSENT: distended, guarding, mass, organolmegaly, rebound, tenderness Rectal exam: PRESENT: deferred Extremities exam: PRESENT: full ROM. ABSENT: calf tenderness, clubbing, pedal edema Neurological exam: PRESENT: alert, awake, oriented to person, oriented to place, oriented to time, oriented to situation, CN II-XII grossly intact. ABSENT: motor sensory deficit Psychiatric exam: PRESENT: appropriate affect, normal mood. ABSENT: homicidal ideation, suicidal ideation Skin exam: PRESENT: dry, intact, warm. ABSENT: cyanosis, rash Results Laboratory Results: 09/03/18 18:16 09/03/18 18:16 09/03/18 09/03/18 09/03/18 18:16 18:16 18:16 WBC 11.7 H RBC 4.11 Hgb 13.9 Hct 41.6 MCV 101 H MCH 33.8 H MCHC 33.5 RDW 14.7 H Plt Count 303 Seg Neutrophils % 78.8 H Lymphocytes % 11.2 L Monocytes % 9.9 Eosinophils % 0.0 Basophils % 0.1 Absolute Neutrophils 9.2 H Absolute Lymphocytes 1.3 Absolute Monocytes 1.2 Absolute Eosinophils 0.0 Absolute Basophils 0.0 Retic Count (auto) 1.74 Absolute Retic 0.074 Sodium 132.9 L Potassium 3.7 Chloride 92 L Carbon Dioxide 31 H Anion Gap 10 BUN 16 Creatinine 0.72 Est GFR ( Amer) > 60 Est GFR (Non-Af Amer) > 60 Glucose 127 H Lactic Acid Calcium 8.7 Iron TIBC % Saturation Ferritin Total Bilirubin 0.8 AST 18 ALT 17 Alkaline Phosphatase 98 Total Protein 6.0 L Albumin 3.2 L Vitamin B12 Folate 09/03/18 09/03/18 09/04/18 18:16 19:35 00:19 WBC RBC Hgb Hct MCV MCH MCHC RDW Plt Count Seg Neutrophils % Lymphocytes % Monocytes % Eosinophils % Basophils % Absolute Neutrophils Absolute Lymphocytes Absolute Monocytes Absolute Eosinophils Absolute Basophils Retic Count (auto) Absolute Retic Sodium Potassium Chloride Carbon Dioxide Anion Gap BUN Creatinine Est GFR ( Amer) Est GFR (Non-Af Amer) Glucose Lactic Acid 2.5 H 2.1 Calcium Iron 19.8 L TIBC 234 L % Saturation 8 Ferritin 264.00 Total Bilirubin AST ALT Alkaline Phosphatase Total Protein Albumin Vitamin B12 > 1000.0 H Folate 16.10 09/03/18 09/03/18 09/03/18 18:16 18:16 22:50 Creatine Kinase < 20 L CK-MB (CK-2) 0.28 Troponin I 0.017 0.014 Impressions: Chest X-Ray 09/03/18 17:22 IMPRESSION: Pneumonia in the right upper lobe and right middle lobe. Possible atypical pneumonia. Assessment and Plan - Diagnosis (1) Pneumonia Qualifiers: Pneumonia type: due to unspecified organism Laterality: right Lung location: unspecified part of lung Qualified Code(s): J18.9 - Pneumonia, unspecified organism Is this a current diagnosis for this admission?: Yes Plan: Pneumonia care set deployed, concern for aspiration given head and neck cancer with persistent complaints of uncontrolled reflux. Follow-up CBC and blood culture (2) COPD (chronic obstructive pulmonary disease) Qualifiers: COPD type: unspecified COPD Qualified Code(s): J44.9 - Chronic obstructive pulmonary disease, unspecified Is this a current diagnosis for this admission?: Yes Plan: Albuterol and Atrovent, incentive spirometry (3) GERD (gastroesophageal reflux disease) Is this a current diagnosis for this admission?: Yes Plan: Proton pump inhibitor, consider Reglan and/or cookie swallow. - Time Time Spent with patient: 25-34 minutes - Inpatient Certification Medical Necessity: Need Close Monitoring Due to Risk of Patient Decompensation
[2018-09-04] MEDS ORDERED: AMPICILLIN SOD/SULBACTAM 3 GM VIAL IV PRN (05:04)
[2018-09-04] MEDS: PANTOPRAZOLE SODIUM 40 MG TABLET.DR PO SCH ×2 (05:24→17:23)
[2018-09-04] MEDS: HEPARIN SOD (PORCINE) 5,000 UNIT/ML 1 ML SYRINGE SUBCUT SCH ×3 (05:24→21:55)
[2018-09-04] MEDS ORDERED: AMPICILLIN SOD INJ 1 GM VIAL ONE (05:49)
[2018-09-04] MEDS ORDERED: AMPICILLIN SODIUM/SULBACTAM NA 3 GM in NORMAL SALINE 100 ML IV SCH (06:00)
[2018-09-04] MEDS ORDERED: CEFTRIAXONE 1 GM/D5W RTU 1 GM/50 ML RTUPB IV SCH (06:00)
[2018-09-04] MEDS: IPRATROPIUM/ALBUTEROL 0.5-2.5 MG/3 ML AMPUL NEB SCH ×2 (08:23→15:53)
[2018-09-04] MEDS: AMPICILLIN SODIUM/SULBACTAM NA 3 GM in NORMAL SALINE 100 ML IV SCH ×2 (11:54→17:23)
--- NOTE | 2018-09-04 18:39 | EKG REPORT ---
SEVERITY:- ABNORMAL ECG - SINUS RHYTHM ABERRANT COMPLEX, POSSIBLY SUPRAVENTRICULAR LEFT ANTERIOR FASCICULAR BLOCK PROBABLE LVH WITH SECONDARY REPOL ABNRM : Confirmed by: Gumaro Tamayo 04-Sep-2018 18:39:13
[2018-09-04] MEDS: AZITHROMYCIN 500 MG in DEXTROSE 5%-WATER 250 ML IV SCH (21:55)
[2018-09-05] MEDS: IPRATROPIUM/ALBUTEROL 0.5-2.5 MG/3 ML AMPUL NEB SCH ×3 (00:23→15:43)
[2018-09-05] MEDS: AMPICILLIN SODIUM/SULBACTAM NA 3 GM in NORMAL SALINE 100 ML IV SCH ×3 (01:07→14:00)
[2018-09-05] MEDS: ACETAMINOPHEN 325 MG TABLET PO PRN ×2 (02:14→23:11)
[2018-09-05 06:00] LABS: ABSOLUTE LYMPHOCYTES (AUTO) 0.4 10^3/uL (0.5-4.7); ABSOLUTE MONOCYTES (AUTO) 0.6 10^3/uL (0.1-1.4); ABSOLUTE NEUT (AUTO) 5.4 10^3/uL (1.7-8.2); BASOPHILS % (AUTO) 0.1 % (0-2); EOSINOPHILS % (AUTO) 0.1 % (0-6); HEMATOCRIT 32.6 % (36.0-47.0); MEAN CORPUSCULAR HEMOGLOBIN 34.7 pg (27.0-33.4); MEAN CORPUSCULAR HGB CONC 34.6 g/dL (32.0-36.0); MEAN CORPUSCULAR VOLUME 100 fl (80-97); MONOCYTES % (AUTO) 8.9 % (3-13); PLATELET COUNT 225 10^3/uL (150-450); RED BLOOD COUNT 3.25 10^6/uL (3.72-5.28); RED CELL DISTRIBUTION WIDTH 14.3 % (11.5-14.0); SEGMENTED NEUTROPHILS % (AUTO) 83.9 % (42-78); TOTAL CELLS COUNTED % (AUTO) 100 %; WHITE BLOOD COUNT 6.4 10^3/uL (4.0-10.5)
[2018-09-05 06:04] LABS: HEMOGLOBIN 11.3 g/dL (12.0-15.5)
[2018-09-05 06:18] LABS: BLOOD UREA NITROGEN 14 mg/dL (7-20); CALCIUM 8.1 mg/dL (8.4-10.2); GLUCOSE 135 mg/dL (75-110)
[2018-09-05 06:23] LABS: CARBON DIOXIDE 32 mmol/L (22-30); CHLORIDE 98 mmol/L (98-107); SODIUM 134.4 mmol/L (137-145)
[2018-09-05 06:29] LABS: ANION GAP 4 (5-19)
[2018-09-05 06:31] LABS: POTASSIUM 2.9 mmol/L (3.6-5.0)
[2018-09-05] MEDS: PANTOPRAZOLE SODIUM 40 MG TABLET.DR PO SCH ×2 (07:16→18:04)
[2018-09-05] MEDS: HEPARIN SOD (PORCINE) 5,000 UNIT/ML 1 ML SYRINGE SUBCUT SCH ×3 (07:17→23:13)
[2018-09-05] MEDS ORDERED: POTASSIUM CHLORIDE 10 MEQ CAPSULE.ER PO ONE (07:30)
[2018-09-05] MEDS: POTASSIUM CHLORIDE 20 MEQ/50 ML RTU IV SCH ×2 (08:22→10:36)
--- NOTE | 2018-09-05 15:24 | PDOC PROGRESS REPORT ---
Subjective Progress Note for:: 09/05/18 Subjective:: Spoke with patient at bedside this morning. She states she still has some shortness of breath. She is requiring oxygen currently. She does admit that she is feeling a little bit better since she has been admitted to the hospital. At this time she is denying chest pain, abdominal pain, nausea or vomiting or dizziness. Reason For Visit: PNEUMONIA Physical Exam Vital Signs: Temp Pulse Resp BP Pulse Ox 97.6 F 80 18 133/62 H 96 09/05/18 07:31 09/05/18 08:56 09/05/18 08:56 09/05/18 07:31 09/05/18 08:56 Intake & Output 09/04/18 09/05/18 09/06/18 06:59 06:59 06:59 Intake Total 1400 1388 150 Balance 1400 1388 150 Weight 96 lb 12.527 oz 97 lb 0.054 oz General appearance: PRESENT: no acute distress, other - Cachectic appearing Head exam: PRESENT: atraumatic, normocephalic Eye exam: PRESENT: EOMI. ABSENT: scleral icterus Ear exam: PRESENT: normal external ear exam Mouth exam: PRESENT: moist, tongue midline Respiratory exam: PRESENT: decreased breath sounds - Bilaterally and mostly at the bases, right is worse than the left, with some fine crackles appreciated of the left lower base, symmetrical Cardiovascular exam: PRESENT: +S1, +S2 GI/Abdominal exam: PRESENT: normal bowel sounds, soft. ABSENT: tenderness Neurological exam: PRESENT: alert, awake, oriented to person, oriented to place, CN II-XII grossly intact Skin exam: PRESENT: dry, warm Results Laboratory Results: 09/05/18 05:27 09/05/18 05:27 09/05/18 09/05/18 09/05/18 05:27 05:27 05:27 WBC 6.4 RBC 3.25 L Hgb 11.3 L D Hct 32.6 L MCV 100 H MCH 34.7 H MCHC 34.6 RDW 14.3 H Plt Count 225 Seg Neutrophils % 83.9 H Lymphocytes % 7.0 L Monocytes % 8.9 Eosinophils % 0.1 Basophils % 0.1 Absolute Neutrophils 5.4 Absolute Lymphocytes 0.4 L Absolute Monocytes 0.6 Absolute Eosinophils 0.0 Absolute Basophils 0.0 Sodium 134.4 L Potassium 2.9 L* Chloride 98 Carbon Dioxide 32 H Anion Gap 4 L BUN 14 Creatinine 0.58 Est GFR ( Amer) > 60 Est GFR (Non-Af Amer) > 60 Glucose 135 H Calcium 8.1 L Magnesium 1.9 09/03/18 09/03/18 09/03/18 18:16 18:16 22:50 Creatine Kinase < 20 L CK-MB (CK-2) 0.28 Troponin I 0.017 0.014 Impressions: Chest X-Ray 09/03/18 17:22 IMPRESSION: Pneumonia in the right upper lobe and right middle lobe. Possible atypical pneumonia. Assessment and Plan - Diagnosis (2) Pneumonia Qualifiers: Pneumonia type: due to unspecified organism Laterality: right Lung location: unspecified part of lung Qualified Code(s): J18.9 - Pneumonia, unspecified organism Is this a current diagnosis for this admission?: Yes (3) COPD (chronic obstructive pulmonary disease) Qualifiers: COPD type: unspecified COPD Qualified Code(s): J44.9 - Chronic obstructive pulmonary disease, unspecified Is this a current diagnosis for this admission?: Yes (4) Hypertension Is this a current diagnosis for this admission?: Yes - Plan Summary Plan Summary: Pneumonia-right upper and middle lobe as seen on chest x-ray. She started on Unasyn and azithromycin after admission. I am going to switch her to Rocephin instead. She is requiring some oxygen but her sats have been greater than 95% on 2 L. I have asked nursing to wean her to room air greater than 92%. Continue with bronchial hygiene and nebulizer treatments. So far cultures are negative. Hypertension-I restarted her Cardizem as she was taking at home from tomorrow. COPD-continue with DuoNeb every 8-she does not seem to be in exacerbation at this time. And she is not on any maintenance inhalers also.
[2018-09-05 16:43] LABS: ANION GAP 5 (5-19); BLOOD UREA NITROGEN 14 mg/dL (7-20); CARBON DIOXIDE 30 mmol/L (22-30); CHLORIDE 101 mmol/L (98-107); GLUCOSE 118 mg/dL (75-110); SODIUM 135.6 mmol/L (137-145)
[2018-09-05 16:45] LABS: POTASSIUM 4.4 mmol/L (3.6-5.0)
[2018-09-05] MEDS: GUAIFENESIN 600 MG TABLET.SA PO SCH (23:11)
[2018-09-05] MEDS: AZITHROMYCIN 500 MG in DEXTROSE 5%-WATER 250 ML IV SCH (23:12)
[2018-09-06] MEDS: IPRATROPIUM/ALBUTEROL 0.5-2.5 MG/3 ML AMPUL NEB SCH ×4 (00:02→23:58)
[2018-09-06 05:42] LABS: ANION GAP 5 (5-19); BLOOD UREA NITROGEN 13 mg/dL (7-20); CALCIUM 8.4 mg/dL (8.4-10.2); CARBON DIOXIDE 30 mmol/L (22-30); CHLORIDE 101 mmol/L (98-107); GLUCOSE 112 mg/dL (75-110); POTASSIUM 3.9 mmol/L (3.6-5.0); SODIUM 136.2 mmol/L (137-145)
[2018-09-06] MEDS: ACETAMINOPHEN 325 MG TABLET PO PRN ×4 (06:09→23:36)
[2018-09-06] MEDS: PANTOPRAZOLE SODIUM 40 MG TABLET.DR PO SCH ×2 (06:09→16:12)
[2018-09-06] MEDS: HEPARIN SOD (PORCINE) 5,000 UNIT/ML 1 ML SYRINGE SUBCUT SCH ×3 (06:09→21:37)
[2018-09-06] MEDS: GUAIFENESIN 600 MG TABLET.SA PO SCH ×2 (09:42→21:37)
[2018-09-06] MEDS: DILTIAZEM HCL 30 MG TABLET PO SCH ×3 (09:42→23:36)
[2018-09-06] MEDS: CEFTRIAXONE SODIUM 1,000 MG in DEXTROSE 5%-WATER 50 ML IV SCH (09:42)
[2018-09-06] MEDS ORDERED: DILTIAZEM HCL 120 MG CAP.SR.24H PO SCH (10:00)
[2018-09-06] MEDS ORDERED: CEFTRIAXONE 1 GM/D5W RTU 1 GM/50 ML RTUPB IV SCH (10:00)
--- NOTE | 2018-09-06 11:27 | RADIOLOGY REPORT (SQ) ---
EXAM DESCRIPTION: CHEST SINGLE VIEW COMPLETED DATE/TIME: 09/06/2018 11:05 am REASON FOR STUDY: acute shortness of breath- r/o edema vs infiltrate COMPARISON: Two-view chest 09/03/2018, 08/28/2018, 08/29/2016 EXAM PARAMETERS: NUMBER OF VIEWS: One view. TECHNIQUE: Single frontal radiographic view of the chest acquired. RADIATION DOSE: NA LIMITATIONS: None. FINDINGS: LUNGS AND PLEURA: Increasing diffuse right-sided airspace disease as compared to 09/03/2018, pneumonia versus asymmetric pulmonary edema. There is a small right pleural effusion, more prominent than on 09/03/2018. Minimal left retrocardiac consolidation is present. No left pleural effusion. No right or left pneumothorax. MEDIASTINUM AND HILAR STRUCTURES: No masses. Contour normal. HEART AND VASCULAR STRUCTURES: Borderline cardiomegaly, stable BONES: No acute findings. HARDWARE: None in the chest. OTHER: No other significant finding. IMPRESSION: Progression of disease in the right chest with increasing right pleural effusion and dif fuse airspace disease. Differential is asymmetric pulmonary edema versus pneumonia. TECHNICAL DOCUMENTATION: JOB ID: [id number] [employer]- All Rights Reserved Reading location - IP/workstation name: [email or web address]
[2018-09-06] MEDS ORDERED: FUROSEMIDE INJ/PF 20 MG/2 ML SDV IV ONE (12:30)
--- NOTE | 2018-09-06 14:45 | PDOC PROGRESS REPORT ---
Subjective Progress Note for:: 09/06/18 Reason For Visit: PNEUMONIA Physical Exam Vital Signs: Temp Pulse Resp BP Pulse Ox 98.2 F 87 28 H 103/51 L 96 09/06/18 07:59 09/06/18 14:00 09/06/18 07:59 09/06/18 07:59 09/06/18 07:59 Intake & Output 09/05/18 09/06/18 09/07/18 06:59 06:59 06:59 Intake Total 1388 1327 50 Balance 1388 1327 50 Weight 97 lb 0.054 oz 95 lb 3.835 oz Results Laboratory Results: 09/05/18 05:27 09/06/18 05:05 09/05/18 09/06/18 16:00 05:05 Sodium 135.6 L 136.2 L Potassium 4.4 D 3.9 Chloride 101 101 Carbon Dioxide 30 30 Anion Gap 5 5 BUN 14 13 Creatinine 0.45 L 0.52 Est GFR ( Amer) > 60 > 60 Est GFR (Non-Af Amer) > 60 > 60 Glucose 118 H 112 H Calcium 8.0 L 8.4 09/03/18 09/03/18 09/03/18 18:16 18:16 22:50 Creatine Kinase < 20 L CK-MB (CK-2) 0.28 Troponin I 0.017 0.014 Impressions: Chest X-Ray 09/06/18 00:00 IMPRESSION: Progression of disease in the right chest with increasing right pleural effusion and diffuse airspace disease. Differential is asymmetric pulmonary edema versus pneumonia. Assessment and Plan - Diagnosis (2) Pneumonia Qualifiers: Pneumonia type: due to unspecified organism Laterality: right Lung location: unspecified part of lung Qualified Code(s): J18.9 - Pneumonia, unspecified organism Is this a current diagnosis for this admission?: Yes (3) COPD (chronic obstructive pulmonary disease) Qualifiers: COPD type: unspecified COPD Qualified Code(s): J44.9 - Chronic obstructive pulmonary disease, unspecified Is this a current diagnosis for this admission?: Yes (4) Hypertension Is this a current diagnosis for this admission?: Yes (5) Pleural effusion associated with pulmonary infection Is this a current diagnosis for this admission?: Yes (6) Hypokalemia Is this a current diagnosis for this admission?: Yes - Plan Summary Plan Summary: Pneumonia-right upper and middle lobe as seen on chest x-ray. Continue with Rocephin and azithromycin, day 2. So far cultures have been all negative. She is on 2 L of oxygen for comfort-we will try to wean as tolerated. Continue with some bronchial hygiene. Pleural effusion-likely secondary to pneumonia. This morning I saw her and she was telling me that she does not feel good-got a repeat chest x-ray which shows worsening of right-sided pleural effusion concerning for pulmonary edema versus infection. Blood pressure is on the lower side so we will give her a small dose of Lasix IV now. We need to diurese her with some Lasix for the next few days. Will order 20 mg p.o. Lasix twice daily dose given her soft BP. Hypertension-yesterday I did start her on home dose of Cardizem 120 mg but this morning her blood pressure was low and her heart rate was elevated in the 120s. I ended up changing to Cardizem 122 Cardizem 30 every 6 and that seems to have improved. Her elevated heart rate might be secondary to her pleural effusion as stated above. COPD-continue with DuoNeb every 8-she does not seem to be in exacerbation at this time. And she is not on any maintenance inhalers also. Hypokalemia-seems to have resolved. But we did start her on Lasix at this time so she may require some supplement daily potassium. We will check blood work in the morning.
[2018-09-06] MEDS: FUROSEMIDE 20 MG TABLET PO SCH (17:56)
[2018-09-06] MEDS: AZITHROMYCIN 500 MG in DEXTROSE 5%-WATER 250 ML IV SCH (21:37)
[2018-09-07] MEDS: DILTIAZEM HCL 30 MG TABLET PO SCH ×3 (05:31→17:48)
[2018-09-07] MEDS: HEPARIN SOD (PORCINE) 5,000 UNIT/ML 1 ML SYRINGE SUBCUT SCH ×3 (05:31→21:25)
[2018-09-07] MEDS: ACETAMINOPHEN 325 MG TABLET PO PRN ×2 (05:43→14:28)
[2018-09-07] MEDS: PANTOPRAZOLE SODIUM 40 MG TABLET.DR PO SCH ×2 (05:44→17:48)
[2018-09-07 06:02] LABS: ANION GAP 6 (5-19); BLOOD UREA NITROGEN 9 mg/dL (7-20); CALCIUM 8.6 mg/dL (8.4-10.2); CARBON DIOXIDE 31 mmol/L (22-30); CHLORIDE 95 mmol/L (98-107); GLUCOSE 102 mg/dL (75-110); POTASSIUM 3.4 mmol/L (3.6-5.0); SODIUM 131.5 mmol/L (137-145)
[2018-09-07] MEDS: IPRATROPIUM/ALBUTEROL 0.5-2.5 MG/3 ML AMPUL NEB SCH ×3 (08:11→23:53)
[2018-09-07] MEDS ORDERED: POTASSIUM CHLORIDE 10 MEQ CAPSULE.ER PO ONE (08:45)
[2018-09-07] MEDS: BUTALB/ACETAMINOPHEN/CAFFEINE 1 TAB EACH PO PRN ×2 (10:01→17:48)
[2018-09-07] MEDS: FUROSEMIDE 20 MG TABLET PO SCH ×2 (10:01→17:48)
[2018-09-07] MEDS: GUAIFENESIN 600 MG TABLET.SA PO SCH ×2 (10:02→21:25)
[2018-09-07] MEDS: CEFTRIAXONE SODIUM 1,000 MG in DEXTROSE 5%-WATER 50 ML IV SCH (10:14)
--- NOTE | 2018-09-07 17:08 | PDOC PROGRESS REPORT ---
Subjective Progress Note for:: 09/07/18 Reason For Visit: PNEUMONIA Physical Exam Vital Signs: Temp Pulse Resp BP Pulse Ox 98.1 F 88 18 107/51 L 94 09/07/18 16:07 09/07/18 16:10 09/07/18 16:10 09/07/18 16:07 09/07/18 16:10 Intake & Output 09/06/18 09/07/18 09/08/18 06:59 06:59 06:59 Intake Total 1327 860 190 Balance 1327 860 190 Weight 95 lb 3.835 oz 104 lb 4.458 oz General appearance: PRESENT: no acute distress, other - cachectic appearing Head exam: PRESENT: atraumatic, normocephalic Eye exam: PRESENT: EOMI. ABSENT: scleral icterus Ear exam: PRESENT: normal external ear exam Mouth exam: PRESENT: moist, tongue midline Respiratory exam: PRESENT: decreased breath sounds, rhonchi, symmetrical, wheezes Cardiovascular exam: PRESENT: +S1, +S2 Pulses: PRESENT: +2 pedal pulses bilateral GI/Abdominal exam: PRESENT: normal bowel sounds, soft. ABSENT: tenderness Extremities exam: ABSENT: pedal edema Neurological exam: PRESENT: alert, awake, oriented to person, oriented to place, oriented to time, CN II-XII grossly intact Skin exam: PRESENT: dry, warm Results Laboratory Results: 09/05/18 05:27 09/07/18 05:12 09/07/18 05:12 Sodium 131.5 L Potassium 3.4 L Chloride 95 L Carbon Dioxide 31 H Anion Gap 6 BUN 9 Creatinine 0.55 Est GFR ( Amer) > 60 Est GFR (Non-Af Amer) > 60 Glucose 102 Calcium 8.6 Magnesium 1.8 09/03/18 09/03/18 09/03/18 18:16 18:16 22:50 Creatine Kinase < 20 L CK-MB (CK-2) 0.28 Troponin I 0.017 0.014 Impressions: Chest X-Ray 09/06/18 00:00 IMPRESSION: Progression of disease in the right chest with increasing right pleural effusion and diffuse airspace disease. Differential is asymmetric pulmonary edema versus pneumonia. Assessment and Plan - Diagnosis (2) Pneumonia Qualifiers: Pneumonia type: due to unspecified organism Laterality: right Lung location: unspecified part of lung Qualified Code(s): J18.9 - Pneumonia, unspecified organism Is this a current diagnosis for this admission?: Yes (3) COPD (chronic obstructive pulmonary disease) Qualifiers: COPD type: unspecified COPD Qualified Code(s): J44.9 - Chronic obstructive pulmonary disease, unspecified Is this a current diagnosis for this admission?: Yes (4) Hypertension Is this a current diagnosis for this admission?: Yes (5) Pleural effusion associated with pulmonary infection Is this a current diagnosis for this admission?: Yes (6) Hypokalemia Is this a current diagnosis for this admission?: Yes - Plan Summary Plan Summary: Pneumonia-right upper and middle lobe as seen on chest x-ray. Continue with Rocephin and azithromycin, day 3. So far cultures have been all negative. She is on 2 L of oxygen due to shortness of breath-we will try to wean as tolerated. Continue with bronchial hygiene. Pleural effusion-seen on chest x-ray yesterday-most likely secondary to pneu monia versus volume overload from all the IV fluids she is getting. Started on a low-dose of Lasix 20 mg twice daily for the next few days. She does feel a little bit better today. We should consider repeating her chest x-ray to reevaluate her vascular congestion and pleural effusion. If she does not improve we should continue the Lasix and consider an echo to evaluate her EF. Her BP is on the soft side so I am unable to give her higher dose of Lasix at this time. Hypertension-yesterday her heart rate was elevated and I have started on Cardizem 120 as her home dose but due to low BP at switch it to 30 mg Cardizem every 6 hours. Heart rate seems to be doing better. At some point we will have to transition her back to Cardizem 120. COPD-continue with DuoNeb every 8-she does not seem to be in exacerbation at this time. She does have some wheezing today on exam but I think this is all secondary to pleural effusion and vascular congestion. And she is not on any maintenance inhalers also. Hypokalemia-seems to have resolved. But we did start her on Lasix at this time so she may require some supplement daily potassium. We will check blood work in the morning.
--- NOTE | 2018-09-07 17:09 | Progress Note ---
Provider Note Provider Note: This morning her labs did show some hyponatremia. This might be secondary to volume overload and pulmonary edema seen on chest x-ray yesterday we will continue to diurese her somewhat and also possibly fluid restrict her little bit. Her potassium is also low this morning so we will replete as needed
[2018-09-07] MEDS: AZITHROMYCIN 500 MG in DEXTROSE 5%-WATER 250 ML IV SCH (21:25)
[2018-09-08] MEDS: DILTIAZEM HCL 30 MG TABLET PO SCH ×4 (03:02→18:12)
[2018-09-08] MEDS: HEPARIN SOD (PORCINE) 5,000 UNIT/ML 1 ML SYRINGE SUBCUT SCH ×3 (05:49→21:36)
[2018-09-08] MEDS: PANTOPRAZOLE SODIUM 40 MG TABLET.DR PO SCH ×2 (05:50→18:12)
[2018-09-08 06:45] LABS: ANION GAP 7 (5-19); BLOOD UREA NITROGEN 8 mg/dL (7-20); CALCIUM 8.4 mg/dL (8.4-10.2); CARBON DIOXIDE 30 mmol/L (22-30); CHLORIDE 95 mmol/L (98-107); GLUCOSE 87 mg/dL (75-110); SODIUM 132.3 mmol/L (137-145)
[2018-09-08] MEDS: IPRATROPIUM/ALBUTEROL 0.5-2.5 MG/3 ML AMPUL NEB SCH ×2 (08:40→16:35)
[2018-09-08] MEDS: FUROSEMIDE 20 MG TABLET PO SCH ×2 (10:05→18:12)
[2018-09-08] MEDS: GUAIFENESIN 600 MG TABLET.SA PO SCH ×2 (10:05→21:36)
[2018-09-08] MEDS: CEFTRIAXONE SODIUM 1,000 MG in DEXTROSE 5%-WATER 50 ML IV SCH (10:06)
--- NOTE | 2018-09-08 10:10 | PDOC PROGRESS REPORT ---
Subjective Progress Note for:: 09/08/18 Subjective:: 83 year old female with a past medical history of COPD, chronic severe regurgitation, remote esophageal cancer with resection. Patient presents with a week of nonproductive cough and fever prompting evaluation emergency room where she is found to have hypotension, tachycardia, leukocytosis and right-sided pneumonia. She started on empiric antibiotics and referred to the hospitalist for admission. Patient denies recent change in medications. She does admit to uncontrolled GERD. 09/08/[id number]-mpgo-old female with history of COPD, remote history of esophageal cancer with resection admitted for pneumonia. Comfortable in the bed communicating well. T-max is 98.8. Latest chest x-ray was done on 09/06/2018 indicates worsening right pleural effusion and increasing diffuse airspace disease. Blood cultures are negative so far. Presently on azithromycin and c eftriaxone. Afebrile. Reason For Visit: PNEUMONIA Physical Exam Vital Signs: Temp Pulse Resp BP Pulse Ox 98.8 F 84 14 110/56 L 94 09/08/18 04:07 09/08/18 08:41 09/08/18 08:41 09/08/18 04:07 09/08/18 08:41 Intake & Output 09/07/18 09/08/18 09/09/18 06:59 06:59 06:59 Intake Total 860 1197 Balance 860 1197 Weight 47.3 kg 47.2 kg General appearance: PRESENT: no acute distress, cooperative, thin Head exam: PRESENT: atraumatic Eye exam: PRESENT: PERRLA Mouth exam: PRESENT: moist, tongue midline Teeth exam: PRESENT: poor dentation Neck exam: ABSENT: carotid bruit, JVD, lymphadenopathy, thyromegaly Respiratory exam: PRESENT: decreased breath sounds Cardiovascular exam: PRESENT: systolic murmur, tachycardia GI/Abdominal exam: PRESENT: normal bowel sounds, soft. ABSENT: distended, guarding, mass, organolmegaly, rebound, tenderness Rectal exam: PRESENT: deferred Extremities exam: PRESENT: full ROM. ABSENT: calf tenderness, clubbing, pedal edema Neurological exam: PRESENT: alert, awake, oriented to person, oriented to place, oriented to time, oriented to situation, CN II-XII grossly intact. ABSENT: motor sensory deficit Psychiatric exam: PRESENT: appropriate affect, normal mood. ABSENT: homicidal ideation, suicidal ideation Results Laboratory Results: 09/05/18 05:27 09/08/18 05:38 09/08/18 05:38 Sodium 132.3 L Potassium 4.0 Chloride 95 L Carbon Dioxide 30 Anion Gap 7 BUN 8 Creatinine 0.62 Est GFR ( Amer) > 60 Est GFR (Non-Af Amer) > 60 Glucose 87 Calcium 8.4 09/03/18 09/03/18 09/03/18 18:16 18:16 22:50 Creatine Kinase < 20 L CK-MB (CK-2) 0.28 Troponin I 0.017 0.014 Impressions: Chest X-Ray 09/06/18 00:00 IMPRESSION: Progression of disease in the right chest with increasing right pleural effusion and diffuse airspace disease. Differential is asymmetric pulmonary edema versus pneumonia. Assessment and Plan - Diagnosis (1) Pneumonia Qualifiers: Pneumonia type: due to unspecified organism Laterality: right Lung locati on: unspecified part of lung Qualified Code(s): J18.9 - Pneumonia, unspecified organism Is this a current diagnosis for this admission?: Yes Plan: Pneumonia care set deployed, concern for aspiration given head and neck cancer with persistent complaints of uncontrolled reflux. Follow-up CBC and blood cu lture right upper and middle lobe as seen on chest x-ray. Continue with Rocephin and azithromycin, day 3. So far cultures have been all negative. She is on 2 L of oxygen due to shortness of breath-we will try to wean as tolerated. Continue with bronchial hygiene. 09/08/2018-this elderly female admitted with community-acquired pneumonia. Presently on IV Rocephin and azithromycin. Afebrile. Blood cultures are negative so far. Pulse ox is 94% on 2 L nasal cannula. On examination chest bi lateral entry was decreased no wheezing no crepitations are present. Plan is to continue the present management. (2) Pleural effusion associated with pulmonary infection Is this a current diagnosis for this admission?: Yes Plan: seen on chest x-ray yesterday-most likely secondary to pneumonia versus volume overload from all the IV fluids she is getting. Started on a low-dose of Lasix 20 mg twice daily for the next few days. She does feel a little bit better today. We should consider repeating her chest x-ray to reevaluate her vascular congestion and pleural effusion. If she does not improve we should continue the Lasix and consider an echo to evaluate her EF. Her BP is on the soft side so I am unable to give her higher dose of Lasix at this time. 09/08/2018-latest chest x-ray indicated right pleural effusion worsening. Associated with increasing diffuse airspace disease. Pleural effusion may be secondary to pneumonia. Patient is afebrile. Pulse ox are improving. Plan is to do the CT chest without contrast today for further information. Patient is on low-dose of Lasix 20 mg p.o. twice daily blood pressure is 110/50. (3) Hypertension Is this a current diagnosis for this admission?: Yes Plan: yesterday her heart rate was elevated and I have started on Cardizem 120 as her home dose but due to low BP at switch it to 30 mg Cardizem every 6 hours. Heart rate seems to be doing better. At some point we will have to transition her becky k to Cardizem 120. 7 82,019-patient's blood pressure today is 110/54 with heart rate of 90. On Ca rdizem 30 mg p.o. every 6 hours. She is also receiving Lasix 20 mg p.o. twice daily. Plan is to continue the present management. (4) COPD (chronic obstructive pulmonary disease) Qualifiers: COPD type: unspecified COPD Qualified Code(s): J44.9 - Chronic obstructive pulmonary disease, unspecified Is this a current diagnosis for this admission?: Yes Plan: Albuterol and Atrovent, incentive spirometry continue with DuoNeb every 8-she does not seem to be in exacerbation at this time. She does have some wheezing today on exam but I think this is all secondary to pleural effusion and vascular congestion. And she is not on any maintenance inhalers also. 09/08/2018-patient has history of COPD presently on DuoNeb nebulizations every 8 hours. On examination of the chest today decreased bilateral air entry especially decreased air entry at the right base no wheezing is present. Socks is 94% on 2 L nasal cannula. Plan is to do the chest x-ray today. - Time Time Spent with patient: 15-24 minutes Smoking Cessation Education: over 10 minutes Medications reviewed and adjusted accordingly: Yes Anticipated discharge: SNF
[2018-09-08 10:25] LABS: HEMATOCRIT 33.6 % (36.0-47.0); HEMOGLOBIN 11.4 g/dL (12.0-15.5); MEAN CORPUSCULAR HEMOGLOBIN 33.9 pg (27.0-33.4); MEAN CORPUSCULAR VOLUME 100 fl (80-97); PLATELET COUNT 334 10^3/uL (150-450); RED BLOOD COUNT 3.37 10^6/uL (3.72-5.28); RED CELL DISTRIBUTION WIDTH 14.2 % (11.5-14.0); WHITE BLOOD COUNT 5.5 10^3/uL (4.0-10.5)
[2018-09-08 11:21] LABS: ALANINE AMINOTRANSFERASE 28 U/L (9-52); ALBUMIN 2.6 g/dL (3.5-5.0); ALKALINE PHOSPHATASE 77 U/L (38-126); ASPARTATE AMINO TRANSFERASE 28 U/L (14-36); BILIRUBIN,DIRECT 0.2 mg/dL (0.0-0.4); BILIRUBIN,TOTAL 0.2 mg/dL (0.2-1.3); TOTAL PROTEIN 4.9 g/dL (6.3-8.2)
[2018-09-08 11:40] LABS: ABSOLUTE LYMPHOCYTES# (MANUAL) 0.5 10^3/uL (0.5-4.7); ABSOLUTE MONOCYTES # (MANUAL) 0.3 10^3/uL (0.1-1.4); BAND NEUTROPHILS % (MANUAL) 1 % (3-5); BASOPHILS % (MANUAL) 0 % (0-2); EOSINOPHILS % (MANUAL) 1 % (0-6); LYMPHOCYTES % (MANUAL) 7 % (13-45); MONOCYTES % (MANUAL) 5 % (3-13); SEGMENTED NEUTROPHILS % (MAN) 84 % (42-78); TOTAL CELLS COUNTED 100
[2018-09-08 11:42] LABS: ANISOCYTOSIS SLIGHT; PLATELET COMMENT ADEQUATE; TOXIC GRANULATION 1+; TOXIC VACUOLATION PRESENT
--- NOTE | 2018-09-08 14:45 | RADIOLOGY REPORT (SQ) ---
EXAM DESCRIPTION: CT CHEST WITHOUT COMPLETED DATE/TIME: 09/08/2018 1:58 pm REASON FOR STUDY: pneumonia D46.4 REFRACTORY ANEMIA, UNSPECIFIED COMPARISON: CT CHEST 02/09/2015, 10/10/2008 CHEST FILMS 09/06/2018, 09/03/2018, 08/28/2018, 08/29/2016 TECHNIQUE: CT scan performed of the chest without intravenous contrast. Images reviewed with lung, soft tissue and bone windows. Reconstructed coronal and sagittal MPR images reviewed. All images st ored on PACS. All CT scanners at this facility use dose modulation, iterative reconstruction, and/or weight based d osing when appropriate to reduce radiation dose to as low as reasonably achievable (ALARA). [facility]: Dose Right [facility]: CareDose [facility]: Dose Right [facility]: Teradose 4D [facility]: [employer] RADIATION DOSE: CT Rad equipment meets quality standard of care and radiation dose reduction techniq ues were employed. CTDIvol: 10.9 mGy. DLP: 399 mGy-cm. mGy. LIMITATIONS: No technical limitations. FINDINGS: LUNGS AND PLEURA: There is chronic volume loss and bronchiectasis in the medial aspect of the right upper lobe and right middle lobe. Multifocal patchy airspace disease is present in the bilateral upper lobes, superior segment right lo wer lobe, and bilateral posterior costophrenic sulci. Patient is post gastric pull-through an esopha gectomy. Findings are worrisome for multifocal aspiration pneumonia. Trace pleural effusions layer dependently in the right and left chest. Airways are patent. HILAR AND MEDIASTINAL STRUCTURES: Post esophagectomy with gastric pull-through. HEART AND VASCULAR STRUCTURES: Ascending thoracic aorta 4 cm in diameter. Calcified aortic valve, qu estion calcific aortic stenosis. Spotty coronary artery calcification. No cardiomegaly or pericardi al effusion UPPER ABDOMEN: 2 cm, 1 cm left upper pole renal cortical cyst. Clips post cholecystectomy. THYROID AND OTHER SOFT TISSUES: No masses. No adenopathy. BONES: Chronic appearing vertebra plana deformities at T7 and L1. There are central endplate depress ions without loss of height at T10 and T12, chronic in appearance. HARDWARE: None in the chest. OTHER: No other significant findings. IMPRESSION: Post gastric pull-through and esophagectomy. Multifocal pneumonia worrisome for aspirat ion. TECHNICAL DOCUMENTATION: JOB ID: [id number] Quality ID # [id number]: Final reports with documentation of one or more dose reduction techniques (e.g., Au tomated exposure control, adjustment of the mA and/or kV according to patient size, use of iterative reconstruction technique) 2010 [employer]- All Rights Reserved Reading location - IP/workstation name: [email or web address]
[2018-09-08] MEDS: AZITHROMYCIN 500 MG in DEXTROSE 5%-WATER 250 ML IV SCH (21:36)
[2018-09-09] MEDS: IPRATROPIUM/ALBUTEROL 0.5-2.5 MG/3 ML AMPUL NEB SCH ×3 (00:19→16:01)
[2018-09-09] MEDS: DILTIAZEM HCL 30 MG TABLET PO SCH ×4 (01:11→17:48)
[2018-09-09] MEDS: PANTOPRAZOLE SODIUM 40 MG TABLET.DR PO SCH ×2 (06:19→17:41)
[2018-09-09] MEDS: HEPARIN SOD (PORCINE) 5,000 UNIT/ML 1 ML SYRINGE SUBCUT SCH ×2 (06:19→14:33)
[2018-09-09 08:02] LABS: ANION GAP 9 (5-19); BLOOD UREA NITROGEN 9 mg/dL (7-20); CALCIUM 8.8 mg/dL (8.4-10.2); CARBON DIOXIDE 30 mmol/L (22-30); CHLORIDE 93 mmol/L (98-107); GLUCOSE 95 mg/dL (75-110); POTASSIUM 4.1 mmol/L (3.6-5.0); SODIUM 131.7 mmol/L (137-145)
[2018-09-09] MEDS: FUROSEMIDE 20 MG TABLET PO SCH (09:51)
[2018-09-09] MEDS: CEFTRIAXONE SODIUM 1,000 MG in DEXTROSE 5%-WATER 50 ML IV SCH (09:51)
[2018-09-09] MEDS: GUAIFENESIN 600 MG TABLET.SA PO SCH (09:51)
--- NOTE | 2018-09-09 15:19 | PDOC DISCHARGE SUMMARY ---
General - Admit/Disc Date/PCP Admission Date/Primary Care Provider: 09/04/18 01:32 ASIYA CARUSO MD Discharge Date: 09/09/18 - Additional Information Resuscitation Status: Full Code Home Medications: Diltiazem HCl [Diltiazem 24Hr ER] 120 mg PO DAILY 09/04/18 History of Present Illness History of Present Illness: SERJIO TY is a 83 year old female with a past medical history of COPD, chronic severe regurgitation, remote esophageal cancer with resection. Patient presents with a week of nonproductive cough and fever prompting evalua tion emergency room where she is found to have hypotension, tachycardia, leukocytosis and right-sided pneumonia. She started on empiric antibiotics and referred to the hospitalist for admission. Patient denies recent change in medications. She does admit to uncontrolled GERD. Hospital Course Hospital Course: This is 83 years old female patient with a past medical history of COPD, chronic severe regurgitation, remote esophageal cancer with resection. Patient presents with a week of nonproductive cough and fever prompting evaluation emergency room where she is found to have hypotension, tachycardia, leukocytosis and right-sided pneumonia. She started on empiric antibiotics and referred to the hospitalist for admission. Patient denies recent change in medications. She does admit to uncontrolled GERD. This is a 83 years old female patient with past medical history of COPD chronic severe regurgitation which is uncontrolled and history of esophageal cancer status post resection chemo and radiation presented with chief complaint of shortness of breath CT scan reported as multifocal pneumonia worrisome for aspiration and she has also trace pleural effusion. Patient has been managed with ceftriaxone and Zithromax. This morning patient seen resting in bed comfortably she is not in pain or any form of distress. Her vital signs are stable and patient stable enough to go home today I will send her home with Levaquin 500 mg p.o. daily for 7 days and Protonix 40 mg p.o. daily. Physical Exam Vital Signs: Temp Pulse Resp BP Pulse Ox 97.7 F 75 18 105/55 L 93 09/09/18 11:29 09/09/18 11:29 09/09/18 11:29 09/09/18 11:29 09/09/18 11:29 Intake & Output 09/08/18 09/09/18 09/10/18 06:59 06:59 06:59 Intake Total 1197 710 Output Total 400 Balance 1197 310 Weight 47.2 kg 46.3 kg General appearance: PRESENT: no acute distress Neck exam: ABSENT: carotid bruit, JVD, lymphadenopathy, thyromegaly Respiratory exam: PRESENT: crackles - Bilateral Cardiovascular exam: PRESENT: RRR. ABSENT: diastolic murmur, rubs, systolic murmur Neurological exam: PRESENT: alert, awake, oriented to person, oriented to place, oriented to time, oriented to situation Results Laboratory Results: 09/08/18 05:38 09/09/18 06:46 09/09/18 06:46 Sodium 131.7 L Potassium 4.1 Chloride 93 L Carbon Dioxide 30 Anion Gap 9 BUN 9 Creatinine 0.72 Est GFR ( Amer) > 60 Est GFR (Non-Af Amer) > 60 Glucose 95 Calcium 8.8 09/03/18 18:35 Blood Blood Culture - Final NO GROWTH IN 5 DAYS 09/03/18 18:35 Blood Blood Culture - Final NO GROWTH IN 5 DAYS 09/03/18 09/03/18 09/03/18 18:16 18:16 22:50 Creatine Kinase < 20 L CK-MB (CK-2) 0.28 Troponin I 0.017 0.014 Impressions: Chest X-Ray 09/06/18 00:00 IMPRESSION: Progression of disease in the right chest with increasing right pleural effusion and diffuse airspace disease. Differential is asymmetric pulmonary edema versus pneumonia. Chest CT 09/08/18 00:00 IMPRESSION: Post gastric pull-through and esophagectomy. Multifocal pneumonia worrisome for aspiration. Qualifiers - * PATIENT BEING DISCHARGED WITH ANY OF THE FOLLOWING DIAGNOSIS: No Acute Heart Failure - Is this a Heart Failure Patient?: No LVEF < 40%?: No- if no continue to question #3 3. Anticoagulant therapy for permanect/persistent/paraoxysmal Afib or Aflutter: N/A
[2018-09-09 17:52] VITALS: BP 115/58
== END 2018-09-09 18:15 | disposition home or self-care (01) | DRG 178 ==
LOC: ER 17:06 → EH 09-04 01:32 → OBSVTOIN 09-04 01:32 → 4S 09-04 11:23
PROVIDERS: ADMIT Internal Medicine; ATTEND Internal Medicine
DX: J69.0 Pneumonitis due to inhalation of food and vomit (principal); J90 Pleural effusion, not elsewhere classified; I95.9 Hypotension, unspecified; J44.9 Chronic obstructive pulmonary disease, unspecified; I48.91 Unspecified atrial fibrillation; F03.90 Unspecified dementia, unspecified severity, without behavioral disturbance, psychotic disturbance, mood disturbance, and anxiety; K21.9 Gastro-esophageal reflux disease without esophagitis; I10 Essential (primary) hypertension; R00.0 Tachycardia, unspecified; E78.5 Hyperlipidemia, unspecified; M19.039 Primary osteoarthritis, unspecified wrist; F32.9 Major depressive disorder, single episode, unspecified; E87.6 Hypokalemia; Z85.01 Personal history of malignant neoplasm of esophagus; Z92.21 Personal history of antineoplastic chemotherapy; Z92.3 Personal history of irradiation; Z87.01 Personal history of pneumonia (recurrent); Z83.6 Family history of other diseases of the respiratory system; Z80.0 Family history of malignant neoplasm of digestive organs; Z79.52 Long term (current) use of systemic steroids; Z88.2 Allergy status to sulfonamides
CPT/HCPCS: 36415; 71045; 71046; 71250; 80048; 80053; 80076; 82550; 82553; 82607; 82728; 82746; 83540; 83550; 83605; 83735; 84484; 85025; 85045; 87040; 93005; 93010; 94640; 94667; 94668; 94799; 96361; 96365; 96366; 96367; 99285; J0290; J0295; J0456; J0696; J1644; J1940; J1956; J3480; J3490; J7030; J7050; J7060; J7620

== ENCOUNTER 2018-11-10 19:30 | Emergency (ER) | payer MEDICARE, OTHER ==
--- NOTE | 2018-11-10 20:08 | ER Document Report ---
ED Medical Screen (RME) - General Chief Complaint: Abdominal Pain Stated Complaint: ABDOMINAL PAIN Time Seen by Provider: 11/10/18 20:02 Primary Care Provider: ASIYA CARUSO MD [Primary Care Provider] - Follow up as needed Mode of Arrival: Ambulatory Information source: Patient Notes: 83-year-old female presents to ED for complaint of left flank and lower abdo nicole pain.. She is accompanied by her son who states she has been having nausea and vomiting. She has not have any bowel movement because she does not eat in the last 3 or 4 days. Esophageal cancer 1998 esophagus removed pneumonia COPD cholecystectomy broken left hip repair fractured right leg. Patient states her stomach is chest due to removal of her esophagus. I have greeted and performed a rapid initial assessment of this patient. A comprehensive ED assessment and evaluation of the patient, analysis of test results and completion of medical decision making process will be conducted by an additional ED providers. TRAVEL OUTSIDE OF THE [place] IN LAST 30 DAYS: No - Related Data Allergies/Adverse Reactions: Sulfa (Sulfonamide Antibiotics) Allergy (Verified 09/03/18 17:09) Past Medical History - Past Medical History Cardiac Medical History: Reports: Hx Atrial Fibrillation, Hx Hypercholesterolemia Denies: Hx Coronary Artery Disease, Hx Heart Attack, Hx Hypertension Pulmonary Medical History: Reports: Hx COPD, Hx Pneumonia Denies: Hx Asthma, Hx Bronchitis Neurological Medical History: Denies: Hx Cerebrovascular Accident, Hx Seizures Renal/ Medical History: Denies: Hx Peritoneal Dialysis GI Medical History: Reports: Hx Gastroesophageal Reflux Disease Musculoskeltal Medical History: 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 Psychiatric Medical History: Reports: Hx Dementia, Hx Depression Past Surgical History: Reports: Hx Appendectomy, Hx Cholecystectomy, Hx Orthopedic Surgery - Right tibia ORIF - Immunizations Hx Diphtheria, Pertussis, Tetanus Vaccination: Yes Physical Exam - Vital signs Vitals: Temp Resp BP Pulse Ox 98.3 F 20 115/58 L 97 11/10/18 19:43 11/10/18 19:43 11/10/18 19:43 11/10/18 19:43 Course - Vital Signs Vital signs: Temp Pulse Resp BP Pulse Ox 98.3 F 20 115/58 L 97 11/10/18 19:43 11/10/18 19:43 11/10/18 19:43 11/10/18 19:43 Doctor's Discharge - Discharge Referrals: ASIYA CARUSO MD [Primary Care Provider] - Follow up as needed
[2018-11-10 20:31] LABS: ABSOLUTE BASOPHILS # (AUTO) 0.1 10^3/uL (0.0-0.2); ABSOLUTE LYMPHOCYTES (AUTO) 1.4 10^3/uL (0.5-4.7); ABSOLUTE MONOCYTES (AUTO) 0.9 10^3/uL (0.1-1.4); ABSOLUTE NEUT (AUTO) 8.6 10^3/uL (1.7-8.2); BASOPHILS % (AUTO) 0.5 % (0-2); EOSINOPHILS % (AUTO) 0.1 % (0-6); HEMATOCRIT 39.8 % (36.0-47.0); HEMOGLOBIN 13.9 g/dL (12.0-15.5); LYMPHOCYTES % (AUTO) 12.3 % (13-45); MEAN CORPUSCULAR HEMOGLOBIN 34.2 pg (27.0-33.4); MEAN CORPUSCULAR HGB CONC 34.9 g/dL (32.0-36.0); MEAN CORPUSCULAR VOLUME 98 fl (80-97); MONOCYTES % (AUTO) 8.5 % (3-13); PLATELET COUNT 251 10^3/uL (150-450); RED BLOOD COUNT 4.05 10^6/uL (3.72-5.28); RED CELL DISTRIBUTION WIDTH 13.4 % (11.5-14.0); SEGMENTED NEUTROPHILS % (AUTO) 78.6 % (42-78); TOTAL CELLS COUNTED % (AUTO) 100 %
[2018-11-10 20:53] LABS: ALBUMIN 3.6 g/dL (3.5-5.0); ALKALINE PHOSPHATASE 101 U/L (38-126); ANION GAP 9 (5-19); ASPARTATE AMINO TRANSFERASE 21 U/L (14-36); BILIRUBIN,TOTAL 1.1 mg/dL (0.2-1.3); BLOOD UREA NITROGEN 7 mg/dL (7-20); CARBON DIOXIDE 32 mmol/L (22-30); CHLORIDE 83 mmol/L (98-107); GLUCOSE 139 mg/dL (75-110); TOTAL PROTEIN 6.6 g/dL (6.3-8.2)
--- NOTE | 2018-11-10 22:45 | ER Document Report ---
ED GI/ - General Chief Complaint: Abdominal Pain Stated Complaint: ABDOMINAL PAIN Time Seen by Provider: 11/10/18 22:45 Primary Care Provider: ASIYA CARUSO MD [Primary Care Provider] - Follow up as needed Mode of Arrival: Ambulatory Information source: Patient, Relative Notes: HISTORY OF PRESENT ILLNESS: Patient is a 83-year-old female with a past medical history of COPD, PSVT, and GERD who presents with left-sided abdominal pain that began yesterday but worsened prior to arrival. Patient reports normal bowel movements, denies fevers or chills. Reports nausea but no vomiting. Location: Left-sided abdomen Onset: Gradual Alleviation: None Provocation: Movement Quality: Aching, cramping Radiation: None Severity: Moderate Timing: Constant History of abdominal surgery: None Associated symptoms: Nausea but no vomiting. Denies fevers or chills, no chest pain or shortness of breath, no diarrhea or constipation Last bowel movement: Today and normal REVIEW OF SYSTEMS: CONSTITUTIONAL : Denies fever or chills, no sweats. Denies recent illness. EENT: Denies eye, ear, throat, or mouth pain or symptoms. Denies nasal or sinus congestion. CARDIOVASCULAR: Denies chest pain. Denies swelling of the legs. RESPIRATORY: Denies cough, cold, or chest congestion. Denies shortness of breath or difficulty breathing. Denies wheezing. GASTROINTESTINAL: Positive for abdominal pain. Positive for nausea but no vomiting or diarrhea. Denies constipation. GENITOURINARY: Denies difficulty urinating, painful urination, burning, frequency, or blood in urine. FEMALE GENITOURINARY: Denies vaginal bleeding, abnormal or irregular periods. MUSCULOSKELETAL: Denies neck or back pain or joint pain or swelling. SKIN: Denies rash or skin lesions. HEMATOLOGIC : Denies easy bruising or bleeding. LYMPHATIC: Denies swollen, enlarged glands. NEUROLOGICAL: Denies altered mental status or loss of consciousness. Denies headache. Denies weakness or paralysis or loss of use of either side. Denies problems with gait or speech. Denies sensory or motor loss. PSYCHIATRIC: Denies anxiety or stress or depression. All other systems reviewed and negative. PHYSICAL EXAMINATION: GENERAL: Frail-appearing, well-nourished and in no acute distress. HEAD: Atraumatic, normocephalic. No scalp deformity, depression, or crepitance. EYES: Pupils are 2mm and equal/round/reactive to light, extraocular movements intact, sclera anicteric, conjunctiva are normal. ENT: Nares patent bilaterally, oropharynx. Moist mucous membranes. No tonsil hypertrophy. NECK: Normal range of motion, supple without lymphadenopathy. LUNGS: Breath sounds present, equal, and clear to auscultation bilaterally. No wheezes, rales, or rhonchi. HEART: Regular rate and rhythm without murmurs, rubs, or gallops. 2+ peripheral pulses. Normal capillary refill. ABDOMEN: Soft, nondistended, mild to moderate tenderness throughout the left mid and lower quadrants. Normoactive bowel sounds. No guarding, no rebound. No masses appreciated. BACK: Normal contour, no midline tenderness. Rectal exam deferred. GENITAL/PELVIC: Deferred. EXTREMITIES: Normal range of motion, no pitting or edema. No cyanosis. NEUROLOGICAL: No focal neurological deficits. Moves all extremities spontaneou sly and on command. PSYCH: Normal mood, normal affect. No suicidal thoughts/ideations. No homicida l thoughts/ideations. No hallucinations. SKIN: Warm, dry, normal turgor, no rashes or lesions noted. ASSESSMENT AND PLAN: This patient is a 83-year-old female who presents with left-sided abdominal pain. 1. Will obtain labs, urine, lactic acid, and CT scan of the abdomen/pelvis. 2. Will give IV morphine for pain control. TRAVEL OUTSIDE OF THE [place] IN LAST 30 DAYS: No - HPI Patient complains to provider of: Abdominal pain Onset: Just prior to arrival Timing/Duration: Sudden Quality of pain: Achy, Cramping, Pressure Severity at maximum: Severe Severity in ED: Moderate Pain Level: 3 Location: LUQ, LLQ Vaginal bleeding (Compared to normal period): None Menstrual period history: Post-menopausal Sexual history: Inactive Associated symptoms: Nausea Exacerbated by: Movement Relieved by: Denies Similar symptoms previously: No Recently seen / treated by doctor: No - Related Data Allergies/Adverse Reactions: Sulfa (Sulfonamide Antibiotics) Allergy (Verified 09/03/18 17:09) Past Medical History - General Information source: Patient - Social History Smoking Status: Never Smoker Chew tobacco use (# tins/day): No Frequency of alcohol use: None Drug Abuse: None Lives with: Family Family History: COPD, Malignancy - Mother with colon cancer Patient has suicidal ideation: No Patient has homicidal ideation: No - Past Medical History Cardiac Medical History: Reports: Hx Atrial Fibrillation, Hx Hypercholesterolemia Denies: Hx Coronary Artery Disease, Hx Heart Attack, Hx Hypertension Pulmonary Medical History: Reports: Hx COPD, Hx Pneumonia Denies: Hx Asthma, Hx Bronchitis EENT Medical History: Reports: None Neurological Medical History: Reports: None. Denies: Hx Cerebrovascular Accident, Hx Seizures Endocrine Medical History: Reports: None Renal/ Medical History: Reports: None. 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 Skin Medical History: Reports None Psychiatric Medical History: Reports: Hx Dementia, Hx Depression Traumatic Medical History: Reports: None Infectious Medical History: Reports: None Past Surgical History: Reports: Hx Appendectomy, Hx Cholecystectomy, Hx Orthopedic Surgery - Right tibia ORIF - Immunizations Hx Diphtheria, Pertussis, Tetanus Vaccination: Yes Review of Systems - Review of Systems Constitutional: No symptoms reported EENT: No symptoms reported Cardiovascular: No symptoms reported Respiratory: No symptoms reported Gastrointestinal: See HPI, Abdominal pain, Nausea Genitourinary: No symptoms reported Female Genitourinary: No symptoms reported Musculoskeletal: No symptoms reported Skin: No symptoms reported Hematologic/Lymphatic: No symptoms reported Neurological/Psychological: No symptoms reported -: Yes All other systems reviewed and negative Physical Exam - Vital signs Vitals: Temp Resp BP Pulse Ox 98.3 F 20 115/58 L 97 11/10/18 19:43 11/10/18 19:43 11/10/18 19:43 11/10/18 19:43 Interpretation: Normal - General General appearance: Appears well, Alert - HEENT Head: Normocephalic, Atraumatic Eyes: Normal Pupils: PERRL - Respiratory Respiratory status: No respiratory distress Chest status: Nontender Breath sounds: Normal Chest palpation: Normal - Cardiovascular Rhythm: Regular Heart sounds: Normal auscultation Murmur: No - Abdominal Inspection: Normal Distension: No distension Bowel sounds: Normal Tenderness: Nontender Organomegaly: No organomegaly - Back Back: Normal, Nontender - Extremities General upper extremity: Normal inspection, Nontender, Normal color, Normal ROM, Normal temperature General lower extremity: Normal inspection, Nontender, Normal color, Normal ROM, Normal temperature, Normal weight bearing. No: Tammie's sign - Neurological Neuro grossly intact: Yes Cognition: Normal Orientation: AAOx4 Benny Coma Scale Eye Opening: Spontaneous [place] Coma Scale Verbal: Oriented [place] Coma Scale Motor: Obeys Commands [place] Coma Scale Total: 15 Speech: Normal Motor strength normal: LUE, RUE, LLE, RLE Sensory: Normal - Psychological Associated symptoms: Normal affect, Normal mood - Skin Skin Temperature: Warm Skin Moisture: Dry Skin Color: Normal Course - Re-evaluation Re-evalutation: 11/11/18 04:58 Blood work is grossly unremarkable, however does reveal hyponatremia. CT scan confirms diverticulitis but no evidence of abscess formation. Patient was given a liter of IV fluids along with Flagyl/Cipro. Will discharge the patient home with strict return precautions and follow-up with primary care. All results were explained to and discussed with the patient, and all questions addressed and answered for the patient. The patient and her son voice both understanding and agreeing with the plan. - Vital Signs Vital signs: Temp Pulse Resp BP Pulse Ox 98.3 F 20 115/58 L 97 11/10/18 19:43 11/10/18 19:43 11/10/18 19:43 11/10/18 19:43 - Laboratory Result Diagrams: 11/10/18 20:16 11/10/18 20:16 Laboratory results interpreted by me: 11/10/18 11/10/18 11/10/18 20:16 20:16 22:24 WBC 11.0 H MCV 98 H MCH 34.2 H Lymph % (Auto) 12.3 L Absolute Neuts (auto) 8.6 H Seg Neutrophils % 78.6 H Sodium 123.8 L Chloride 83 L Carbon Dioxide 32 H Glucose 139 H Lipase 15.7 L Urine Blood SMALL H Urine Urobilinogen 2.0 H - Diagnostic Test Radiology reviewed: Image reviewed, Reports reviewed Discharge - Discharge Clinical Impression: Diverticulitis Abdominal pain Qualifiers: Abdominal location: left lower quadrant Qualified Code(s): R10.32 - Left lower quadrant pain Condition: Good Disposition: HOME, SELF-CARE Instructions: Diverticulitis ([facility]) Additional Instructions: You have been evaluated in the Emergency Department for abdominal pain. While here, you had a CT scan that revealed diverticulitis and it is now safe to be discharged home. Please follow-up with your primary physician as instructed this week to recheck blood work, specifically to have your Sodium rechecked. Return to the Emergency Department if you experience passing out, chest pain, dizziness, worsening abdominal pain, bloody stools, high fevers, or any other concerning symptoms. Prescriptions: Hydrocodone/Acetaminophen [Cayce 5-325 mg Tablet] 1 tab PO Q6HP PRN #20 tablet PRN Reason: For Pain Ondansetron [Zofran Odt 4 mg Tablet] 1 tab PO Q6HP PRN #30 tab.rapdis PRN Reason: For Nausea/Vomiting Amox Tr/Potassium Clavulanate [Augmentin 875-125 mg Tablet] 1 tab PO BID #20 tablet Referrals: ASIYA CARUSO MD [Primary Care Provider] - Follow up as needed Print Language: Croatian
[2018-11-10 22:56] LABS: APPEARANCE,URINE CLEAR; BILIRUBIN,URINE NEGATIVE (NEGATIVE); COLOR,URINE YELLOW; GLUCOSE, URINE NEGATIVE (NEGATIVE); KETONES,URINE NEGATIVE (NEGATIVE); LEUKOCYTE ESTERASE,URINE NEGATIVE (NEGATIVE); NITRITE,URINE NEGATIVE (NEGATIVE); PROTEIN,URINE NEGATIVE (NEGATIVE); URINE SPECIFIC GRAVITY 1.036
--- NOTE | 2018-11-10 23:07 | RADIOLOGY REPORT (SQ) ---
EXAM DESCRIPTION: CT ABDOMEN PELVIS WITH IV CONTRAST COMPLETED DATE/TME: 11/10/2018 20:12 CLINICAL HISTORY: 83 years, Female, Left lower quadrant and flank pain This exam was performed according to our departmental dose-optimization program which includes automated exposure control, adjustment of the mA and/or kVp according to patient size and/or use of iterative reconstruction technique where applicable. Compared to CT abdomen dated 02/17/2016. FINDINGS: Visualized lung bases are within normal limits. Liver, spleen, pancreas, adrenal glands are within normal limits. Status post cholecystectomy. Mild central biliary dilatation. Left renal cyst measures 2.3 cm. No hydronephrosis. No dilated loops of bowel to suggest obstruction. Moderate amount of stool in the colon. Moderate diffuse colonic diverticulosis without CT evidence for acute diverticulitis. Bladder is unremarkable. Gynecologic organs are unremarkable. 3.5 cm left adnexal cyst, can be followed up on nonemergent basis with pelvic ultrasound. No free fluid or free air. Abdominal pelvic lymphadenopathy. Abdominal aorta is severely diffusely calcified without aneurysm. Moderate inflammation involving the descending colon consistent with diverticulitis. Mild fluid in the left paracolic gutter. No significant focal fluid collection. No significant free air. IMPRESSION: Moderate descending colonic diverticulitis with mild pericolonic inflammation and fluid. No discrete abscess.
[2018-11-10] MEDS ORDERED: MORPHINE SULFATE 10 MG/ML INJ IV ONE (23:31)
[2018-11-11] MEDS ORDERED: NORMAL SALINE 1000 ML 1,000 ML IV ONE (01:55)
[2018-11-11] MEDS ORDERED: CIPROFLOXACIN 400 MG/D5W RTU 400 MG/200 ML RTUPB IV SCH ×2 (02:00→06:00)
[2018-11-11] MEDS ORDERED: METRONIDAZOLE 500 MG/NS RTU 500 MG/100 ML RTUPB IV ONE (02:30)
[2018-11-11 05:03] VITALS: BP 122/55
== END 2018-11-11 05:15 | disposition home or self-care (01) ==
LOC: ER 19:30
DX: K57.92 Diverticulitis of intestine, part unspecified, without perforation or abscess without bleeding (principal); R10.32 Left lower quadrant pain; R11.0 Nausea; J44.9 Chronic obstructive pulmonary disease, unspecified; I48.91 Unspecified atrial fibrillation; E78.00 Pure hypercholesterolemia, unspecified; Z90.49 Acquired absence of other specified parts of digestive tract; Z88.2 Allergy status to sulfonamides
CPT/HCPCS: 36415; 83690; 85025; 80053; 81001; 84484; 83605; 74177; J3490; J2270; J7030; 96365; 96366; 96375; 99284

== ENCOUNTER 2018-11-20 09:14 | Inpatient (IN) | payer MEDICARE, OTHER ==
[2018-11-20] MEDS ORDERED: IPRATROPIUM/ALBUTEROL 0.5-2.5 MG/3 ML AMPUL NEB ONE (09:41)
[2018-11-20] MEDS ORDERED: METHYLPREDNISOLONE INJ 125 MG/2 ML SDV IV ONE (09:41)
--- NOTE | 2018-11-20 09:48 | ER Document Report ---
ED Respiratory Problem - General Chief Complaint: Shortness Of Breath Stated Complaint: DIFFICULTY BREATHING Time Seen by Provider: 11/20/18 09:36 Primary Care Provider: ASIYA CARUSO MD [Primary Care Provider] - Follow up as needed Mode of Arrival: Wheelchair Information source: Patient, Relative TRAVEL OUTSIDE OF THE [place] IN LAST 30 DAYS: No - HPI Patient complains to provider of: COPD Onset: Yesterday - pt. with h/o COPD with SOB and dyspnea starting last night and continuing into today. She is not on home 02. She denies CP, N,V - Related Data Allergies/Adverse Reactions: Sulfa (Sulfonamide Antibiotics) Allergy (Verified 11/20/18 09:17) Past Medical History - General Information source: Patient, Relative - Social History Smoking Status: Former Smoker Family History: COPD, Malignancy - Mother with colon cancer - Past Medical History Cardiac Medical History: Reports: Hx Atrial Fibrillation, Hx Hypercholesterolemia Denies: Hx Coronary Artery Disease, Hx Heart Attack, Hx Hypertension Pulmonary Medical History: Reports: Hx COPD, Hx Pneumonia Denies: Hx Asthma, Hx Bronchitis Neurological Medical History: Denies: Hx Cerebrovascular Accident, Hx Seizures Renal/ Medical History: Denies: Hx Peritoneal Dialysis GI Medical History: Reports: Hx Gastroesophageal Reflux Disease Musculoskeletal Medical History: 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 Psychiatric Medical History: Reports: Hx Dementia, Hx Depression Past Surgical History: Reports: Hx Appendectomy, Hx Cholecystectomy, Hx Orthopedic Surgery - Right tibia ORIF - Immunizations Hx Diphtheria, Pertussis, Tetanus Vaccination: Yes Review of Systems - Review of Systems Constitutional: No symptoms reported EENT: No symptoms reported Cardiovascular: No symptoms reported Respiratory: See HPI, Short of breath, Wheezing Gastrointestinal: No symptoms reported Musculoskeletal: No symptoms reported -: Yes All other systems reviewed and negative Physical Exam - Vital signs Vitals: Temp Pulse BP Pulse Ox 97.4 F 83 134/61 H 64 L 11/20/18 09:21 11/20/18 09:21 11/20/18 09:21 11/20/18 09:21 - General General appearance: Alert In distress: None - HEENT Pharynx: Normal Neck: Normal - Respiratory Respiratory status: No respiratory distress Chest status: Nontender Breath sounds: Wheezing - end expiratory wheezes and scattered rhonchi L>R Course - Re-evaluation Re-evalutation: 11/20/18 11:39 pt. breathing better after nebs and steroids -- will call hospitalist for admission - Vital Signs Vital signs: Temp Pulse Resp BP Pulse Ox 97.4 F 83 134/61 H 74 L 11/20/18 09:21 11/20/18 09:21 11/20/18 09:21 11/20/18 09:22 - Laboratory Result Diagrams: 11/20/18 09:42 11/20/18 09:42 Laboratory results interpreted by me: 11/20/18 11/20/18 11/20/18 09:42 09:42 10:00 MCV 100 H Lymph % (Auto) 10.5 L Seg Neutrophils % 83.3 H Carbonic Acid 1.39 H ABG pCO2 46.3 H ABG pO2 52.2 L ABG HCO3 29.2 H ABG Total CO2 30.6 H ABG O2 Saturation 87.2 L Sodium 131.6 L Chloride 94 L Carbon Dioxide 33 H Glucose 146 H Albumin 3.3 L - Diagnostic Test Radiology reviewed: Reports reviewed - possible LLL PNA - EKG Interpretation by Me EKG shows normal: Sinus rhythm Rate: Normal Rhythm: NSR - nsr with LAD and no acute changes - Consults t.cJohanna don day Time consulted: 11:47 Consulted provider: will come to ER Critical Care Note - Critical Care Note Total time excluding time spent on procedures (mins): 30 Discharge - Discharge Clinical Impression: COPD exacerbation Pneumonia Qualifiers: Pneumonia type: due to unspecified organism Laterality: left Lung location: lower lobe of lung Qualified Code(s): J18.1 - Lobar pneumonia, unspecified organism Condition: Fair Disposition: ADMITTED INPATIENT Admitting Provider: Jamie (Hospitalist) Unit Admitted: Telemetry Referrals: ASIYA CARUSO MD [Primary Care Provider] - Follow up as needed
[2018-11-20 10:08] LABS: ARTERIAL BLOOD BASE EXCESS 3.9 mmol/L; ARTERIAL BLOOD H2CO3 1.39 mmol/L (1.05-1.35); ARTERIAL BLOOD HCO3 29.2 mmol/L (20-24); ARTERIAL BLOOD O2 SATURATION 87.2 % (94-98); ARTERIAL BLOOD PCO2 46.3 mmHg (35-45); ARTERIAL BLOOD PH 7.42 (7.35-7.45); ARTERIAL BLOOD PO2 52.2 mmHg (80-100); ARTERIAL BLOOD TOTAL CO2 30.6 mmol/L (21-25)
[2018-11-20 10:09] LABS: ABSOLUTE LYMPHOCYTES (AUTO) 0.6 10^3/uL (0.5-4.7); ABSOLUTE MONOCYTES (AUTO) 0.3 10^3/uL (0.1-1.4); ABSOLUTE NEUT (AUTO) 4.8 10^3/uL (1.7-8.2); BASOPHILS % (AUTO) 0.2 % (0-2); EOSINOPHILS % (AUTO) 0.8 % (0-6); HEMATOCRIT 37.2 % (36.0-47.0); HEMOGLOBIN 12.5 g/dL (12.0-15.5); LYMPHOCYTES % (AUTO) 10.5 % (13-45); MEAN CORPUSCULAR HEMOGLOBIN 33.4 pg (27.0-33.4); MEAN CORPUSCULAR HGB CONC 33.6 g/dL (32.0-36.0); MEAN CORPUSCULAR VOLUME 100 fl (80-97); MONOCYTES % (AUTO) 5.2 % (3-13); PLATELET COUNT 247 10^3/uL (150-450); RED BLOOD COUNT 3.73 10^6/uL (3.72-5.28); RED CELL DISTRIBUTION WIDTH 13.7 % (11.5-14.0); SEGMENTED NEUTROPHILS % (AUTO) 83.3 % (42-78); TOTAL CELLS COUNTED % (AUTO) 100 %; WHITE BLOOD COUNT 5.8 10^3/uL (4.0-10.5)
[2018-11-20 10:12] LABS: ARTERIAL BLOOD FIO2 4L
[2018-11-20 10:24] LABS: ALBUMIN 3.3 g/dL (3.5-5.0); ALKALINE PHOSPHATASE 107 U/L (38-126); ANION GAP 5 (5-19); ASPARTATE AMINO TRANSFERASE 25 U/L (14-36); BILIRUBIN,DIRECT 0.1 mg/dL (0.0-0.4); BILIRUBIN,TOTAL 0.4 mg/dL (0.2-1.3); BLOOD UREA NITROGEN 7 mg/dL (7-20); CALCIUM 9.1 mg/dL (8.4-10.2); CARBON DIOXIDE 33 mmol/L (22-30); CHLORIDE 94 mmol/L (98-107); GLUCOSE 146 mg/dL (75-110); POTASSIUM 4.8 mmol/L (3.6-5.0); TOTAL PROTEIN 6.3 g/dL (6.3-8.2)
--- NOTE | 2018-11-20 11:22 | RADIOLOGY REPORT (SQ) ---
EXAM DESCRIPTION: CHEST SINGLE VIEW COMPLETED DATE/TIME: 11/20/2018 11:11 am REASON FOR STUDY: SOB COMPARISON: 09/06/2018 EXAM PARAMETERS: NUMBER OF VIEWS: One view. TECHNIQUE: Single frontal radiographic view of the chest acquired. RADIATION DOSE: NA LIMITATIONS: None. FINDINGS: LUNGS AND PLEURA: Bilateral pleural effusions. Chronic interstitial changes. Increased o pacification in the left base compared to the earlier study. MEDIASTINUM AND HILAR STRUCTURES: No masses. Contour normal. HEART AND VASCULAR STRUCTURES: Heart normal in size. Normal vasculature. BONES: No acute findings. HARDWARE: None in the chest. OTHER: No other significant finding. IMPRESSION: Cannot exclude left lower lobe pneumonia superimposed upon chronic changes. Small pleur al effusions. TECHNICAL DOCUMENTATION: JOB ID: [id number] [employer]- All Rights Reserved Reading location - IP/workstation name: [email or web address]
[2018-11-20] MEDS ORDERED: AZITHROMYCIN INJ 500 MG VIAL IV ONE (11:34)
[2018-11-20] MEDS ORDERED: CEFTRIAXONE INJ 1000 MG VIAL IV ONE (11:34)
[2018-11-20] MEDS ORDERED: MAG HYDROX/AL HYDROX/SIMETH SUSP 30 ML UDCUP PO PRN (12:29)
[2018-11-20] MEDS ORDERED: ONDANSETRON 4 MG TAB.RAPDIS PO PRN (12:29)
[2018-11-20] MEDS ORDERED: ONDANSETRON HCL INJ/PF 4 MG/2 ML SDV IV PRN (12:29)
[2018-11-20] MEDS ORDERED: IPRATROPIUM/ALBUTEROL 0.5-2.5 MG/3 ML AMPUL NEB PRN (12:29)
--- NOTE | 2018-11-20 12:47 | PDOC H&P ---
History of Present Illness Admission Date/PCP: 11/20/18 11:51 ASIYA CARUSO MD History of Present Illness: SERJIO TY is a 83 year old female who has a 2-day history of incr eased shortness of breath. Patient was just admitted to the hospital back in September of this year for pneumonia. Patient states at that time she had fever and chills patient states that now for the last 2 nights she is just noticed an increase in shortness of breath and a cough. Patient denies fever chills or sputum production. Cording to the ER physician when the patient presented to the ED her O2 sat was 64% on room air. Patient does not use home O2. Patient denies chest pain. Patient does states she has a history of COPD. She also has a history of atrial fib and esophageal cancer Past Medical History Cardiac Medical History: Reports: Atrial Fibrillation, Hyperlipidema Denies: Coronary Artery Disease, Myocardial Infarction, Hypertension Pulmonary Medical History: Reports: Chronic Obstructive Pulmonary Disease (COPD ), Pneumonia Denies: Asthma, Bronchitis Neurological Medical History: Denies: Seizures Malignancy Medical History: Reports: Other - Esophageal in 1989 GI Medical History: Reports: Gastroesophageal Reflux Disease Musculoskeltal Medical History: Reports: Arthritis - Wrist Psychiatric Medical History: Reports: Dementia, Depression Hematology: Denies: Anemia Past Surgical History Past Surgical History: Reports: Appendectomy, Cholecystectomy, Orthopedic Surgery - Right tibia ORIF, Other - Esophageal Social History Smoking Status: Former Smoker Frequency of Alcohol Use: Rare Hx Recreational Drug Use: No Drugs: None Hx Prescription Drug Abuse: No - Advance Directive Resuscitation Status: Full Code Family History Family History: COPD, Malignancy - Mother with colon cancer Parental Family History Reviewed: No Children Family History Reviewed: No Sibling(s) Family History Reviewed.: No Medication/Allergy Allergies/Adverse Reactions: Sulfa (Sulfonamide Antibiotics) Allergy (Verified 11/20/18 09:17) Review of Systems Constitutional: ABSENT: chills, fever(s), headache(s), weight gain, weight loss Cardiovascular: ABSENT: chest pain, dyspnea on exertion, edema, orthropnea, palpitations Respiratory: PRESENT: cough Gastrointestinal: ABSENT: abdominal pain, constipation, diarrhea, hematemesis, hematochezia, nausea, vomiting Neurological: ABSENT: abnormal gait, abnormal speech, confusion, dizziness, focal weakness, syncope Psychiatric: ABSENT: anxiety, depression, homidical ideation, suicidal ideation Physical Exam Vital Signs: Temp Pulse Resp BP Pulse Ox 97.4 F 83 22 H 144/75 H 96 11/20/18 09:21 11/20/18 09:21 11/20/18 11:01 11/20/18 11:01 11/20/18 11:01 Intake & Output 11/19/18 11/20/18 11/21/18 06:59 06:59 06:59 Weight 47.5 kg General appearance: PRESENT: no acute distress, other - Patient states she is from [facility] [place] has lived in [place] since [address] Patient states she stopped smoking about 10 years ago. Respiratory exam: PRESENT: rhonchi, other - Of lower lobe Cardiovascular exam: PRESENT: RRR. ABSENT: diastolic murmur, rubs, systolic murmur GI/Abdominal exam: PRESENT: normal bowel sounds, soft. ABSENT: distended, guarding, mass, organolmegaly, rebound, tenderness Neurological exam: PRESENT: alert, awake, oriented to person, oriented to place, oriented to time, oriented to situation, CN II-XII grossly intact. ABSENT: motor sensory deficit Psychiatric exam: PRESENT: appropriate affect, normal mood. ABSENT: homicidal ideation, suicidal ideation Results Laboratory Results: 11/20/18 09:42 11/20/18 09:42 11/20/18 11/20/18 11/20/18 09:42 09:42 10:00 WBC 5.8 RBC 3.73 Hgb 12.5 Hct 37.2 MCV 100 H MCH 33.4 MCHC 33.6 RDW 13.7 Plt Count 247 Seg Neutrophils % 83.3 H Carbonic Acid 1.39 H HCO3/H2CO3 Ratio 21:1 ABG pH 7.42 ABG pCO2 46.3 H ABG pO2 52.2 L ABG HCO3 29.2 H ABG O2 Saturation 87.2 L ABG Base Excess 3.9 FiO2 4L Sodium 131.6 L Potassium 4.8 Chloride 94 L Carbon Dioxide 33 H Anion Gap 5 BUN 7 Creatinine 0.56 Est GFR ( Amer) > 60 Glucose 146 H Calcium 9.1 Total Bilirubin 0.4 AST 25 Alkaline Phosphatase 107 Total Protein 6.3 Albumin 3.3 L Impressions: Chest X-Ray 11/20/18 09:31 IMPRESSION: Cannot exclude left lower lobe pneumonia superimposed upon chronic changes. Small pleural effusions. Assessment and Plan - Diagnosis (1) History of atrial fibrillation Is this a current diagnosis for this admission?: Yes Plan: No sign of atrial fib on admission EKG (2) Esophageal cancer Is this a current diagnosis for this admission?: Yes Plan: Patient had surgery 1994 esophageal cancer, no recurrence no mets (3) Pneumonia Qualifiers: Pneumonia type: due to unspecified organism Laterality: left Lung location: lower lobe of lung Qualified Code(s): J18.1 - Lobar pneumonia, unspecified organism Is this a current diagnosis for this admission?: Yes Plan: Questionable infiltrate left lower lobe the patient had aspiration pneumonia back in September 2018.. Patient states increased shortness of breath the last 2 days with cough. No fever no chills, white count normal (4) COPD (chronic obstructive pulmonary disease) Qualifiers: Is this a current diagnosis for this admission?: Yes Plan: Patient has a history of COPD and uses inhalers at home does not use a nebulizer. - Time Time Spent with patient: 35 or more minutes
[2018-11-20 13:23] LABS: INTERNATIONAL RATION (INR) 1.04; PROTHROMBIN TIME 13.6 SEC (11.4-15.4)
[2018-11-20] MEDS: NORMAL SALINE 1000 ML 1,000 ML IV PRN (13:33)
--- NOTE | 2018-11-20 13:42 | EKG REPORT ---
SEVERITY:- ABNORMAL ECG - SINUS RHYTHM FIRST DEGREE AV BLOCK LEFT AXIS DEVIATION LOW VOLTAGE THROUGHOUT BORDERLINE PROLONGED QT INTERVAL : Confirmed by: Tad Barajas MD 20-Nov-2018 13:41:53
[2018-11-20] MEDS: ENOXAPARIN SODIUM INJ 40 MG/0.4 ML DISP.SYRIN SUBCUT SCH (16:53)
[2018-11-20 21:44] LABS: APPEARANCE,URINE CLEAR; BILIRUBIN,URINE NEGATIVE (NEGATIVE); COLOR,URINE STRAW; GLUCOSE, URINE NEGATIVE (NEGATIVE); KETONES,URINE NEGATIVE (NEGATIVE); LEUKOCYTE ESTERASE,URINE NEGATIVE (NEGATIVE); NITRITE,URINE NEGATIVE (NEGATIVE); PROTEIN,URINE NEGATIVE (NEGATIVE); URINE SPECIFIC GRAVITY 1.008; UROBILINOGEN,URINE NEGATIVE mg/dL (<2.0)
[2018-11-20] MEDS: FAMOTIDINE 20 MG TABLET PO SCH (21:48)
[2018-11-21] MEDS: NORMAL SALINE 1000 ML 1,000 ML IV PRN ×2 (01:39→14:43)
[2018-11-21 06:55] LABS: ABSOLUTE LYMPHOCYTES (AUTO) 0.7 10^3/uL (0.5-4.7); ABSOLUTE MONOCYTES (AUTO) 0.4 10^3/uL (0.1-1.4); ABSOLUTE NEUT (AUTO) 3.9 10^3/uL (1.7-8.2); BASOPHILS % (AUTO) 0.1 % (0-2); HEMATOCRIT 35.1 % (36.0-47.0); HEMOGLOBIN 11.8 g/dL (12.0-15.5); MEAN CORPUSCULAR HEMOGLOBIN 33.2 pg (27.0-33.4); MEAN CORPUSCULAR HGB CONC 33.7 g/dL (32.0-36.0); MEAN CORPUSCULAR VOLUME 98 fl (80-97); MONOCYTES % (AUTO) 7.5 % (3-13); PLATELET COUNT 274 10^3/uL (150-450); RED BLOOD COUNT 3.57 10^6/uL (3.72-5.28); RED CELL DISTRIBUTION WIDTH 13.8 % (11.5-14.0); SEGMENTED NEUTROPHILS % (AUTO) 78.4 % (42-78); TOTAL CELLS COUNTED % (AUTO) 100 %
[2018-11-21 07:20] LABS: ANION GAP 7 (5-19); BLOOD UREA NITROGEN 8 mg/dL (7-20); CALCIUM 8.5 mg/dL (8.4-10.2); CARBON DIOXIDE 29 mmol/L (22-30); CHLORIDE 97 mmol/L (98-107); GLUCOSE 123 mg/dL (75-110); POTASSIUM 4.3 mmol/L (3.6-5.0)
[2018-11-21] MEDS: CEFTRIAXONE 1 GM/D5W RTU 1 GM/50 ML RTUPB IV SCH (09:50)
[2018-11-21] MEDS: FAMOTIDINE 20 MG TABLET PO SCH ×2 (09:52→21:29)
[2018-11-21] MEDS: DOCUSATE SODIUM 100 MG CAPSULE PO SCH (09:52)
[2018-11-21] MEDS: ENOXAPARIN SODIUM INJ 40 MG/0.4 ML DISP.SYRIN SUBCUT SCH (09:53)
[2018-11-21] MEDS: AZITHROMYCIN 500 MG in DEXTROSE 5%-WATER 250 ML IV SCH (10:38)
--- NOTE | 2018-11-21 13:12 | PDOC PROGRESS REPORT ---
Subjective Progress Note for:: 11/21/18 Subjective:: Patient was admitted on 11/20/2018 for lower lobe pneumonia and hypoxia Reason For Visit: PNEUMONIA,COPD,ATRIAL FIB,ESOPHAGEAL CANCER Physical Exam Vital Signs: Temp Pulse Resp BP Pulse Ox 97.5 F 100 17 147/83 H 98 11/21/18 12:10 11/21/18 12:10 11/21/18 12:10 11/21/18 12:10 11/21/18 12:10 Intake & Output 11/20/18 11/21/18 11/22/18 06:59 06:59 06:59 Intake Total 1885 Output Total 825 Balance 1060 Weight 43.3 kg General appearance: PRESENT: mild distress, other - She is on nasal cannula 5 L Respiratory exam: PRESENT: rhonchi - Lower lobe Cardiovascular exam: PRESENT: RRR. ABSENT: diastolic murmur, rubs, systolic murmur Neurological exam: PRESENT: alert, awake, oriented to person, oriented to place, oriented to time, oriented to situation, CN II-XII grossly intact. ABSENT: motor sensory deficit Psychiatric exam: PRESENT: appropriate affect, normal mood, other - She states she feels better today than she did yesterday, less short of breath. ABSENT: homicidal ideation, suicidal ideation Results Laboratory Results: 11/21/18 05:25 11/21/18 05:25 11/20/18 11/21/18 11/21/18 21:00 05:25 05:25 WBC 5.0 RBC 3.57 L Hgb 11.8 L Hct 35.1 L MCV 98 H MCH 33.2 MCHC 33.7 RDW 13.8 Plt Count 274 Seg Neutrophils % 78.4 H Sodium 133.4 L Potassium 4.3 Chloride 97 L Carbon Dioxide 29 Anion Gap 7 BUN 8 Creatinine 0.56 Est GFR ( Amer) > 60 Glucose 123 H Calcium 8.5 Urine Color STRAW Urine Appearance CLEAR Urine pH 6.0 Ur Specific [place] 1.008 Urine Protein NEGATIVE Urine Glucose (UA) NEGATIVE Urine Ketones NEGATIVE Urine Blood NEGATIVE Urine Nitrite NEGATIVE Ur Leukocyte Esterase NEGATIVE Urine WBC (Auto) 0 Urine RBC (Auto) 1 11/20/18 09:42 NT-Pro-B Natriuret Pep 913 H Impressions: Chest X-Ray 11/20/18 09:31 IMPRESSION: Cannot exclude left lower lobe pneumonia superimposed upon chronic changes. Small pleural effusions. Assessment and Plan - Diagnosis (1) History of atrial fibrillation Is this a current diagnosis for this admission?: Yes Plan: No sign of atrial fib on admission EKG 11/21/2018 no sign of atrial fib EKGs, patient takes no medicine for atrial fib (2) Esophageal cancer Is this a current diagnosis for this admission?: Yes Plan: Patient had surgery 1994 esophageal cancer, no recurrence no mets 11/21/2018 no complaints in association with her previous cancer (3) Pneumonia Qualifiers: Pneumonia type: due to unspecified organism Laterality: left Lung location: lower lobe of lung Qualified Code(s): J18.1 - Lobar pneumonia, unspecified organism Is this a current diagnosis for this admission?: Yes Plan: Questionable infiltrate left lower lobe the patient had aspiration pneumonia back in September 2018.. Patient states increased shortness of breath the last 2 days with cough. No fever no chills, white count normal Start patient on Rocephin and Zithromax IV 11/21/2018 patient's O2 sat between 91 and 98% on 5 L nasal cannula, will try to wean this down lower, day 2 of antibiotics. White count is normal 5.0. BNP yesterday was 913, lactic acid 1.1 (4) COPD (chronic obstructive pulmonary disease) Qualifiers: Is this a current diagnosis for this admission?: Yes Plan: Patient has a history of COPD and uses inhalers at home does not use a nebulizer. 11/21/2018 patient is on DuoNeb treatments as needed , no steroids - Time Time Spent with patient: 25-34 minutes
[2018-11-21] MEDS: IPRATROPIUM/ALBUTEROL 0.5-2.5 MG/3 ML AMPUL NEB PRN (19:35)
[2018-11-21] MEDS: ZOLPIDEM TARTRATE 5 MG TABLET PO SCH (21:29)
[2018-11-22] MEDS: NORMAL SALINE 1000 ML 1,000 ML IV PRN ×2 (00:51→17:38)
[2018-11-22] MEDS: CEFTRIAXONE 1 GM/D5W RTU 1 GM/50 ML RTUPB IV SCH (10:10)
[2018-11-22] MEDS: FAMOTIDINE 20 MG TABLET PO SCH ×2 (10:10→21:27)
[2018-11-22] MEDS: DOCUSATE SODIUM 100 MG CAPSULE PO SCH (10:10)
[2018-11-22] MEDS: ENOXAPARIN SODIUM INJ 40 MG/0.4 ML DISP.SYRIN SUBCUT SCH (10:11)
[2018-11-22] MEDS: IPRATROPIUM/ALBUTEROL 0.5-2.5 MG/3 ML AMPUL NEB PRN (10:20)
[2018-11-22] MEDS ORDERED: FUROSEMIDE INJ/PF 40 MG/4 ML SDV ONE (10:37)
[2018-11-22] MEDS ORDERED: DILTIAZEM HCL INJ 25 MG/5 ML VIAL ONE ×2 (11:24→11:36)
[2018-11-22] MEDS ORDERED: FUROSEMIDE INJ/PF 40 MG/4 ML SDV IV ONE (11:30)
[2018-11-22] MEDS: AZITHROMYCIN 500 MG in DEXTROSE 5%-WATER 250 ML IV SCH (11:47)
[2018-11-22] MEDS: DILTIAZEM HCL 30 MG TABLET PO SCH ×3 (12:02→23:19)
--- NOTE | 2018-11-22 12:55 | RADIOLOGY REPORT (SQ) ---
EXAM DESCRIPTION: CHEST SINGLE VIEW COMPLETED DATE/TIME: 11/22/2018 11:48 am REASON FOR STUDY: chest pain COMPARISON: AP chest 11/20/2018, 09/06/2018, 09/03/2018 CT chest 09/08/2018 EXAM PARAMETERS: NUMBER OF VIEWS: One view. TECHNIQUE: Single frontal radiographic view of the chest acquired. RADIATION DOSE: NA LIMITATIONS: None. FINDINGS: LUNGS AND PLEURA: Chronic volume loss and peripheral lung parenchymal scarring present. C hronic right middle lobe bronchiectasis. There is bilateral pleural thickening/trace bilateral pleural effusions similar compared to 11/20/2018 , and new compared to 09/06/2018. No pneumothorax. MEDIASTINUM AND HILAR STRUCTURES: Patient is post esophagectomy and gastric pull-through. Air-fluid level in the mediastinum within the neoesophagus HEART AND VASCULAR STRUCTURES: No cardiomegaly BONES: No acute findings. HARDWARE: Clips right upper quadrant post cholecystectomy OTHER: No other significant finding. IMPRESSION: Trace Bilateral pleural effusions new compared to September. Stable lung parenchymal scarring and interstitial changes/ bronchiectasis. TECHNICAL DOCUMENTATION: JOB ID: [id number] [employer]- All Rights Reserved Reading location - IP/workstation name: [email or web address]
--- NOTE | 2018-11-22 14:31 | PDOC PROGRESS REPORT ---
Subjective Progress Note for:: 11/22/18 Subjective:: Patient was admitted on 11/20/2018 for lower lobe pneumonia and hypoxia 11/22/2018 she was short of breath last night morning the nurses. However O2 sats through the night remained in the 90s and in fact upper 90s this afternoon or late morning patient had an episode where she desatted down to about 89. Patient had critical care time for 45 minutes. Reason For Visit: PNEUMONIA,COPD,ATRIAL FIB,ESOPHAGEAL CANCER Physical Exam Vital Signs: Temp Pulse Resp BP Pulse Ox 97.6 F 85 18 124/85 97 11/22/18 12:55 11/22/18 12:55 11/22/18 12:55 11/22/18 12:55 11/22/18 12:55 Intake & Output 11/21/18 11/22/18 11/23/18 06:59 06:59 06:59 Intake Total 1885 2920 Output Total 825 525 Balance 1060 2395 Weight 43.3 kg 44.4 kg General appearance: PRESENT: mild distress Respiratory exam: PRESENT: crackles, other - Patient was doing some rapid shallow breathing saying she was having trouble catching her breath Cardiovascular exam: PRESENT: irregular rhythm Neurological exam: PRESENT: alert, awake, oriented to person, oriented to place, oriented to time, oriented to situation, CN II-XII grossly intact. ABSENT: motor sensory deficit Psychiatric exam: PRESENT: anxious Results Laboratory Results: 11/21/18 05:25 11/21/18 05:25 11/20/18 11/22/18 09:42 10:57 NT-Pro-B Natriuret Pep 913 H 2200 H Impressions: Chest X-Ray 11/22/18 00:00 IMPRESSION: Trace Bilateral pleural effusions new compared to September. Stable lung parenchymal scarring and interstitial changes/ bronchiectasis. Assessment and Plan - Diagnosis (1) History of atrial fibrillation Is this a current diagnosis for this admission?: Yes Plan: No sign of atrial fib on admission EKG 11/21/2018 no sign of atrial fib EKGs, patient takes no medicine for atrial fib 11/22/2018 patient was supposed to be on Cardizem CD 120 but was not put on this on admission. This morning after rounds patient had an episode where she appeared to go in atrial fib with a rate of about 150. Patient was given a bolus of Cardizem 5 mg x 2 and dropped her rate down into the 80s and 90s, and appeared much more comfortable. At the same time patient was given 40 of Lasix IV and also diuresed about 1000 cc. Patient was put back on Cardizem 30 mg p.o. every 6 hours and I will changes to the CD dosing in the next day or 2 (2) Esophageal cancer Is this a current diagnosis for this admission?: Yes Plan: Patient had surgery 1994 esophageal cancer, no recurrence no mets 11/21/2018 no complaints in association with her previous cancer 11/22/2018 esophageal cancer does not applied to this admission (3) Pneumonia Qualifiers: Pneumonia type: due to unspecified organism Laterality: left Lung location: lower lobe of lung Qualified Code(s): J18.1 - Lobar pneumonia, unspecified organism Is this a current diagnosis for this admission?: Yes Plan: Questionable infiltrate left lower lobe the patient had aspiration pneumonia back in September 2018.. Patient states increased shortness of breath the last 2 days with cough. No fever no chills, white count normal Start patient on Rocephin and Zithromax IV 11/21/2018 patient's O2 sat between 91 and 98% on 5 L nasal cannula, will try to wean this down lower, day 2 of antibiotics. White count is normal 5.0. BNP yesterday was 913, lactic acid 1.1 11/22/2018 stat chest x-ray done this morning shows a trace bilateral pleural effusions which are new compared to September which is similar to the x-ray 2 days ago new compared to September no other acute findings no mention of pneumonia on this x-ray today Admission chest x-ray said cannot exclude left lower lobe pneumonia superimposed upon chronic changes We will continue IV antibiotics for the next several days due to the risk of infection in this debilitated patient (4) COPD (chronic obstructive pulmonary disease) Qualifiers: Is this a current diagnosis for this admission?: Yes Plan: Patient has a history of COPD and uses inhalers at home does not use a nebuliz er. 11/21/2018 patient is on DuoNeb treatments as needed , no steroids 11/22/2018 vision on breathing treatments as needed. Most recent O2 sat on 4 L nasal cannula is 97%, respirations of 18 She was treated with IV Lasix earlier and seemed to diurese 1000 cc from this this may be a combination of mild CHF as well as pneumonia. Also complicating matters is her atrial fib - Time Time Spent with patient: 35 or more minutes
[2018-11-22] MEDS ORDERED: FUROSEMIDE INJ/PF 20 MG/2 ML SDV IV SCH (18:00)
[2018-11-22] MEDS: ACETAMINOPHEN 325 MG TABLET PO PRN (20:21)
[2018-11-22] MEDS: ZOLPIDEM TARTRATE 5 MG TABLET PO SCH (21:27)
--- NOTE | 2018-11-22 22:13 | EKG REPORT ---
SEVERITY:- ABNORMAL ECG - SINUS TACHYCARDIA WITH ATRIAL FIB. LEFT ANTERIOR FASCICULAR BLOCK LOW VOLTAGE THROUGHOUT REPOLARIZATION ABNORMALITY, PROB RATE RELATED : Confirmed by: Tad Barajas MD 22-Nov-2018 22:12:35
[2018-11-23] MEDS: FUROSEMIDE INJ/PF 20 MG/2 ML SDV IV SCH ×2 (05:51→18:17)
[2018-11-23] MEDS: DILTIAZEM HCL 30 MG TABLET PO SCH ×4 (05:51→23:32)
[2018-11-23 08:34] LABS: ANION GAP 7 (5-19); BLOOD UREA NITROGEN 3 mg/dL (7-20); CARBON DIOXIDE 35 mmol/L (22-30); CHLORIDE 95 mmol/L (98-107); GLUCOSE 87 mg/dL (75-110)
[2018-11-23 08:44] LABS: POTASSIUM 2.8 mmol/L (3.6-5.0)
[2018-11-23] MEDS: POTASSIUM CHLORIDE 10 MEQ CAPSULE.ER PO ONE ×2 (09:05→09:19)
[2018-11-23] MEDS: POTASSIUM CHLORIDE 10 MEQ CAPSULE.ER PO SCH ×2 (09:20→18:17)
[2018-11-23] MEDS: ENOXAPARIN SODIUM INJ 40 MG/0.4 ML DISP.SYRIN SUBCUT SCH (09:50)
[2018-11-23] MEDS: DOCUSATE SODIUM 100 MG CAPSULE PO SCH (09:50)
[2018-11-23] MEDS: FAMOTIDINE 20 MG TABLET PO SCH ×2 (09:50→21:05)
[2018-11-23] MEDS: CEFTRIAXONE 1 GM/D5W RTU 1 GM/50 ML RTUPB IV SCH (09:51)
--- NOTE | 2018-11-23 11:48 | PDOC PROGRESS REPORT ---
Subjective Progress Note for:: 11/23/18 Subjective:: Patient was admitted on 11/20/2018 for lower lobe pneumonia and hypoxia 11/22/2018 she was short of breath last night morning the nurses. However O2 sats through the night remained in the 90s and in fact upper 90s this afternoon or late morning patient had an episode where she desatted down to about 89. Patient had critical care time for 45 minutes. 11/23/2018 she is resting comfortably and feeling much better no signs of hypoxia or peripheral edema O2 sat 95% on 4 L nasal cannula Reason For Visit: PNEUMONIA,COPD,ATRIAL FIB,ESOPHAGEAL CANCER Physical Exam Vital Signs: Temp Pulse Resp BP Pulse Ox 97.8 F 106 H 18 118/70 95 11/23/18 07:59 11/23/18 08:17 11/23/18 08:17 11/23/18 07:59 11/23/18 08:17 Intake & Output 11/22/18 11/23/18 11/24/18 06:59 06:59 06:59 Intake Total 2920 1640 Output Total 525 450 Balance 2395 1190 Weight 44.4 kg 44.9 kg General appearance: PRESENT: no acute distress, other - Sitting up in bed talking to son no distress Respiratory exam: PRESENT: crackles - Right base Cardiovascular exam: PRESENT: RRR. ABSENT: diastolic murmur, rubs, systolic murmur Neurological exam: PRESENT: alert, awake, oriented to person, oriented to place, oriented to time, oriented to situation, CN II-XII grossly intact. ABSENT: motor sensory deficit Psychiatric exam: PRESENT: appropriate affect, normal mood, other - Resting comfortably smiling talking to her son at the bedside. ABSENT: homicidal ideation, suicidal ideation Results Laboratory Results: 11/21/18 05:25 11/23/18 07:50 11/23/18 07:50 Sodium 137.1 Potassium 2.8 L* Chloride 95 L Carbon Dioxide 35 H Anion Gap 7 BUN 3 L Creatinine 0.51 L Est GFR ( Amer) > 60 Glucose 87 Calcium 9.0 11/20/18 11/22/18 11/23/18 09:42 10:57 07:50 NT-Pro-B Natriuret Pep 913 H 2200 H 1860 H Impressions: Chest X-Ray 11/22/18 00:00 IMPRESSION: Trace Bilateral pleural effusions new compared to September. Stable lung parenchymal scarring and interstitial changes/ bronchiectasis. Assessment and Plan - Diagnosis (1) History of atrial fibrillation Is this a current diagnosis for this admission?: Yes Plan: No sign of atrial fib on admission EKG 11/21/2018 no sign of atrial fib EKGs, patient takes no medicine for atrial fib 11/22/2018 patient was supposed to be on Cardizem CD 120 but was not put on this on admission. This morning after rounds patient had an episode where she jose eared to go in atrial fib with a rate of about 150. Patient was given a bolus of Cardizem 5 mg x 2 and dropped her rate down into the 80s and 90s, and appeared much more comfortable. At the same time patient was given 40 of Lasix IV and also diuresed about 1000 cc. Patient was put back on Cardizem 30 mg p.o. every 6 hours and I will changes to the CD dosing in the next day or 2 11/23/2018 patient is pulse is between mid 80s and 110 will DC short acting Cardizem and switch to CD 120 today. Repeat EKG in the morning (2) Esophageal cancer Is this a current diagnosis for this admission?: Yes Plan: Patient had surgery 1994 esophageal cancer, no recurrence no mets 11/21/2018 no complaints in association with her previous cancer 11/22/2018 esophageal cancer does not applied to this admission (3) Pneumonia Qualifiers: Pneumonia type: due to unspecified organism Laterality: left Lung location: lower lobe of lung Qualified Code(s): J18.1 - Lobar pneumonia, unspecified organism Is this a current diagnosis for this admission?: Yes Plan: Questionable infiltrate left lower lobe the patient had aspiration pneumonia back in September 2018.. Patient states increased shortness of breath the last 2 days with cough. No fever no chills, white count normal Start patient on Rocephin and Zithromax IV 11/21/2018 patient's O2 sat between 91 and 98% on 5 L nasal cannula, will try to wean this down lower, day 2 of antibiotics. White count is normal 5.0. BNP yesterday was 913, lactic acid 1.1 11/22/2018 stat chest x-ray done this morning shows a trace bilateral pleural effusions which are new compared to September which is similar to the x-ray 2 days a go new compared to September no other acute findings, no mention of pneumonia on this x-ray today Admission chest x-ray said cannot exclude left lower lobe pneumonia superimposed upon chronic changes We will continue IV antibiotics for the next several days due to the risk of infection in this debilitated patient 11/23/2018 my review of the chest x-ray shows a definite infiltrate in the left lobe as compared to September's x-ray. We will continue IV antibiotics white count remains normal patient remains afebrile. (4) COPD (chronic obstructive pulmonary disease) Qualifiers: Is this a current diagnosis for this admission?: Yes Plan: Patient has a history of COPD and uses inhalers at home does not use a nebulizer. 11/21/2018 patient is on DuoNeb treatments as needed , no steroids 11/22/2018 vision on breathing treatments as needed. Most recent O2 sat on 4 L nasal cannula is 97%, respirations of 18 She was treated with IV Lasix earlier and seemed to diurese 1000 cc from this this may be a combination of mild CHF as well as pneumonia. Also complicating matters is her atrial fib 11/23/2018 patient's O2 sats remain good at 4 L.. No wheezing.. (5) CHF (congestive heart failure) Is this a current diagnosis for this admission?: Yes Plan: 11/23/2018 patient's BNP has come down today following Lasix yesterday. No signs of peripheral edema slight crackles in the right base. We will continue Lasix 20 mg IV every 12 hours - Time Time Spent with patient: 35 or more minutes
[2018-11-23] MEDS: AZITHROMYCIN 500 MG in DEXTROSE 5%-WATER 250 ML IV SCH (12:18)
[2018-11-23] MEDS: ZOLPIDEM TARTRATE 5 MG TABLET PO SCH (21:05)
[2018-11-24] MEDS: FUROSEMIDE INJ/PF 20 MG/2 ML SDV IV SCH (05:21)
[2018-11-24] MEDS: DILTIAZEM HCL 30 MG TABLET PO SCH ×3 (05:21→17:24)
[2018-11-24 06:30] LABS: ANION GAP 7 (5-19); BLOOD UREA NITROGEN 6 mg/dL (7-20); CALCIUM 8.7 mg/dL (8.4-10.2); CARBON DIOXIDE 32 mmol/L (22-30); CHLORIDE 94 mmol/L (98-107); GLUCOSE 85 mg/dL (75-110); POTASSIUM 3.6 mmol/L (3.6-5.0)
--- NOTE | 2018-11-24 06:36 | EKG REPORT ---
SEVERITY:- ABNORMAL ECG - SINUS TACHYCARDIA PAIRED ATRIAL PREMATURE COMPLEXES LEFT ANTERIOR FASCICULAR BLOCK PROBABLE LVH WITH SECONDARY REPOL ABNRM : Confirmed by: Tad Barajas MD 24-Nov-2018 06:35:28
[2018-11-24] MEDS: DOCUSATE SODIUM 100 MG CAPSULE PO SCH (09:14)
[2018-11-24] MEDS: POTASSIUM CHLORIDE 10 MEQ CAPSULE.ER PO SCH ×2 (09:14→17:25)
[2018-11-24] MEDS: FAMOTIDINE 20 MG TABLET PO SCH ×2 (09:14→21:40)
[2018-11-24] MEDS: CEFTRIAXONE 1 GM/D5W RTU 1 GM/50 ML RTUPB IV SCH (09:15)
[2018-11-24] MEDS: ENOXAPARIN SODIUM INJ 40 MG/0.4 ML DISP.SYRIN SUBCUT SCH (09:15)
[2018-11-24] MEDS: AZITHROMYCIN 500 MG in DEXTROSE 5%-WATER 250 ML IV SCH (10:57)
[2018-11-24] MEDS: ACETAMINOPHEN 325 MG TABLET PO PRN (13:33)
--- NOTE | 2018-11-24 15:12 | PDOC PROGRESS REPORT ---
Subjective Progress Note for:: 11/24/18 Subjective:: Patient was admitted on 11/20/2018 for lower lobe pneumonia and hypoxia 11/22/2018 she was short of breath last night morning the nurses. However O2 sats through the night remained in the 90s and in fact upper 90s this afternoon or late morning patient had an episode where she desatted down to about 89. Patient had critical care time for 45 minutes. 11/23/2018 she is resting comfortably and feeling much better no signs of hypoxia or peripheral edema O2 sat 95% on 4 L nasal cannula 11/24/2018 room air sat 95%, she will be walked this afternoon to see if she joseph lifies for home O2 patient feeling much better Reason For Visit: PNEUMONIA,COPD,ATRIAL FIB,ESOPHAGEAL CANCER Physical Exam Vital Signs: Temp Pulse Resp BP Pulse Ox 98.2 F 85 16 123/59 L 97 11/24/18 09:00 11/24/18 10:18 11/24/18 09:00 11/24/18 09:00 11/24/18 10:18 Intake & Output 11/23/18 11/24/18 11/25/18 06:59 06:59 06:59 Intake Total 1640 1730 100 Output Total 450 875 Balance 1190 855 100 Weight 44.9 kg 44.9 kg General appearance: PRESENT: no acute distress, other - Sitting up in bed eating talking in full sentences no respiratory distress Respiratory exam: PRESENT: crackles, rales - Lung base Cardiovascular exam: PRESENT: RRR. ABSENT: diastolic murmur, rubs, systolic murmur Neurological exam: PRESENT: alert, awake, oriented to person, oriented to place, oriented to time, oriented to situation, CN II-XII grossly intact. ABSENT: motor sensory deficit Psychiatric exam: PRESENT: appropriate affect, normal mood. ABSENT: homicidal ideation, suicidal ideation Results Laboratory Results: 11/21/18 05:25 11/24/18 05:21 11/24/18 05:21 Sodium 133.1 L Potassium 3.6 Chloride 94 L Carbon Dioxide 32 H Anion Gap 7 BUN 6 L Creatinine 0.58 Est GFR ( Amer) > 60 Glucose 85 Calcium 8.7 11/20/18 11/22/18 11/23/18 09:42 10:57 07:50 NT-Pro-B Natriuret Pep 913 H 2200 H 1860 H 11/24/18 05:21 NT-Pro-B Natriuret Pep 1310 H Impressions: Chest X-Ray 11/22/18 00:00 IMPRESSION: Trace Bilateral pleural effusions new compared to September. Stable lung parenchymal scarring and interstitial changes/ bronchiectasis. Assessment and Plan - Diagnosis (1) History of atrial fibrillation Is this a current diagnosis for this admission?: Yes Plan: No sign of atrial fib on admission EKG 11/21/2018 no sign of atrial fib EKGs, patient takes no medicine for atrial fib 11/22/2018 patient was supposed to be on Cardizem CD 120 but was not put on this on admission. This morning after rounds patient had an episode where she appeared to go in atrial fib with a rate of about 150. Patient was given a bolus of Cardizem 5 mg x 2 and dropped her rate down into the 80s and 90s, and appeared much more comfortable. At the same time patient was given 40 of Lasix IV and also diuresed about 1000 cc. Patient was put back on Cardizem 30 mg p.o. every 6 hours and I will changes to the CD dosing in the next day or 2 11/23/2018 patient is pulse is between mid 80s and 110 will DC short acting Cardizem and switch to CD 120 today. Repeat EKG in the morning 11/24/2018 no sign of atrial fib on today's EKG. Pulse vacillates between 64 and 100 (2) Esophageal cancer Is this a current diagnosis for this admission?: Yes Plan: Patient had surgery 1994 esophageal cancer, no recurrence no mets 11/21/2018 no complaints in association with her previous cancer 11/22/2018 esophageal cancer does not applied to this admission [id number] no problems concerning esophageal cancer (3) Pneumonia Qualifiers: Pneumonia type: due to unspecified organism Laterality: left Lung location: lower lobe of lung Qualified Code(s): J18.1 - Lobar pneumonia, unspecified organism Is this a current diagnosis for this admission?: Yes Plan: Questionable infiltrate left lower lobe the patient had aspiration pneumonia back in September 2018.. Patient states increased shortness of breath the last 2 days with cough. No fever no chills, white count normal Start patient on Rocephin and Zithromax IV 11/21/2018 patient's O2 sat between 91 and 98% on 5 L nasal cannula, will try to wean this down lower, day 2 of antibiotics. White count is normal 5.0. BNP yesterday was 913, lactic acid 1.1 11/22/2018 stat chest x-ray done this morning shows a trace bilateral pleural effusions which are new compared to September which is similar to the x-ray 2 days ago new compared to September no other acute findings, no mention of pneumonia on this x-ray today Admission chest x-ray said cannot exclude left lower lobe pneumonia superimposed upon chronic changes We will continue IV antibiotics for the next several days due to the risk of infection in this debilitated patient 11/23/2018 my review of the chest x-ray shows a definite infiltrate in the left lobe as compared to September's x-ray. We will continue IV antibiotics white count remains normal patient remains afebrile. 11/24/2018 chest x-ray from 11/22/2018 shows no pneumonia and I suspect patient never had pneumonia to begin with although we will continue IV antibiotics during hospitalization, possibly another day or 2 with the most. Patient has never had leukocytosis. Lactic acid on admission was 1.1 liver patient's BNP was elevated and is coming down nicely with Lasix 20 mg twice daily (4) COPD (chronic obstructive pulmonary disease) Qualifiers: Is this a current diagnosis for this admission?: Yes Plan: Patient has a history of COPD and uses inhalers at home does not use a nebulizer. 11/21/2018 patient is on DuoNeb treatments as needed , no steroids 11/22/2018 vision on breathing treatments as needed. Most recent O2 sat on 4 L nasal cannula is 97%, respirations of 18 She was treated with IV Lasix earlier and seemed to diurese 1000 cc from this this may be a combination of mild CHF as well as pneumonia. Also complicating matters is her atrial fib 11/23/2018 patient's O2 sats remain good at 4 L.. No wheezing.. 11/24/2018 air patient sat is 95%. Patient is on no prednisone or Solu-Medrol (5) CHF (congestive heart failure) Is this a current diagnosis for this admission?: Yes Plan: 11/23/2018 patient's BNP has come down today following Lasix yesterday. No signs of peripheral edema slight crackles in the right base. We will continue Lasix 20 mg IV every 12 hours 11 24 18 BMP today is down to 1310 we will switch patient over to Lasix p.o. today 10 mg twice daily - Time Time Spent with patient: 25-34 minutes
[2018-11-24] MEDS: FUROSEMIDE 20 MG TABLET PO SCH (17:24)
[2018-11-24] MEDS: ZOLPIDEM TARTRATE 5 MG TABLET PO SCH (21:40)
[2018-11-25] MEDS: DILTIAZEM HCL 30 MG TABLET PO SCH ×4 (03:13→17:26)
[2018-11-25] MEDS ORDERED: AZITHROMYCIN 250 MG TABLET PO SCH (10:00)
[2018-11-25] MEDS: DOCUSATE SODIUM 100 MG CAPSULE PO SCH (10:01)
[2018-11-25] MEDS: POTASSIUM CHLORIDE 10 MEQ CAPSULE.ER PO SCH ×2 (10:01→17:25)
[2018-11-25] MEDS: FAMOTIDINE 20 MG TABLET PO SCH ×2 (10:02→22:07)
[2018-11-25] MEDS: CEFTRIAXONE 1 GM/D5W RTU 1 GM/50 ML RTUPB IV SCH (10:02)
[2018-11-25] MEDS: ENOXAPARIN SODIUM INJ 40 MG/0.4 ML DISP.SYRIN SUBCUT SCH (10:02)
[2018-11-25] MEDS: FUROSEMIDE 20 MG TABLET PO SCH ×2 (10:02→17:26)
--- NOTE | 2018-11-25 17:32 | PDOC PROGRESS REPORT ---
Subjective Progress Note for:: 11/25/18 Subjective:: No adverse events overnight. No new complaints. Heart rate has been controlled. I spoke with her about her medication compliance. She said that she stopped taking the Cardizem a few months ago because she heard a "horror story" from someone who was on it but she could not give me any specific details about it. She denies ever having any trouble with it when she had previously taken it. She also denied ever having any fevers or chills with this particular episode. After she got some Lasix in the ER she felt a lot better. Reason For Visit: PNEUMONIA,COPD,ATRIAL FIB,ESOPHAGEAL CANCER Physical Exam Vital Signs: Temp Pulse Resp BP Pulse Ox 97.9 F 84 24 H 128/46 H 93 11/25/18 12:00 11/25/18 14:00 11/25/18 12:00 11/25/18 12:00 11/25/18 12:00 Intake & Output 11/24/18 11/25/18 11/26/18 06:59 06:59 06:59 Intake Total 1730 1076 50 Output Total 875 Balance 855 1076 50 Weight 44.9 kg 46.1 kg General appearance: PRESENT: no acute distress, cooperative, disheveled, thin Respiratory exam: PRESENT: clear to auscultation roddy, symmetrical, unlabored. ABSENT: accessory muscle use, chest wall tenderness, crackles, prolonged expiratory phas, rhonchi, tachypnea, wheezes Cardiovascular exam: PRESENT: irregular rhythm Pulses: PRESENT: normal carotid pulses Vascular exam: PRESENT: normal capillary refill GI/Abdominal exam: PRESENT: normal bowel sounds, soft. ABSENT: distended, guarding, rebound, tenderness Extremities exam: ABSENT: clubbing, pedal edema Musculoskeletal exam: PRESENT: normal inspection. ABSENT: deformity Neurological exam: PRESENT: alert, awake, oriented to person, oriented to place, oriented to situation Psychiatric exam: PRESENT: appropriate affect, normal mood Skin exam: PRESENT: dry, warm Results Laboratory Results: 11/21/18 05:25 11/24/18 05:21 11/20/18 14:59 Blood Blood Culture - Final NO GROWTH IN 5 DAYS 11/20/18 09:42 Blood Blood Culture - Final NO GROWTH IN 5 DAYS 11/20/18 11/22/18 11/23/18 09:42 10:57 07:50 NT-Pro-B Natriuret Pep 913 H 2200 H 1860 H 11/24/18 05:21 NT-Pro-B Natriuret Pep 1310 H Impressions: Chest X-Ray 11/22/18 00:00 IMPRESSION: Trace Bilateral pleural effusions new compared to September. Stable lung parenchymal scarring and interstitial changes/ bronchiectasis. Assessment and Plan - Diagnosis (1) Atrial fibrillation Qualifiers: Atrial fibrillation type: paroxysmal Qualified Code(s): I48.0 - Paroxysmal atrial fibrillation Is this a current diagnosis for this admission?: Yes Plan: I believe that what happened to her was that she had atrial fibrillation with RVR and this caused her to develop some pulmonary edema. Once her rate was controlled and she got some Lasix, her breathing problem resolved. We have had her on short acting Cardizem, and I have scheduled her last dose of the short acting formulation for tomorrow morning at 6 AM. At 10 AM tomorrow, she will start on the long-acting formulation, and will continue that at home. She probably meets criteria for anticoagulation based on her age alone, but I will talk to her about whether or not she will agree to take any anticoagulant medications. (2) CHF (congestive heart failure) Qualifiers: Heart failure type: other Qualified Code(s): I50.9 - Heart failure, unspecified Is this a current diagnosis for this admission?: Yes Plan: This was due to her atrial fibrillation with RVR and has now resolved. She had an echocardiogram earlier this year that showed a normal EF and a very mild grade 1 diastolic dysfunction and no evidence of pulmonary hypertension. (3) COPD exacerbation Is this a current diagnosis for this admission?: No Plan: I do not believe that this is what was going on with her. I think this is been ruled out. There was also some concern about her having a pneumonia, which I also believe to be ruled out. I have stopped her antibiotics. - Time Time Spent with patient: 15-24 minutes
[2018-11-25] MEDS: ZOLPIDEM TARTRATE 5 MG TABLET PO SCH (22:07)
[2018-11-26] MEDS: DILTIAZEM HCL 30 MG TABLET PO SCH ×2 (01:30→07:24)
[2018-11-26] MEDS ORDERED: DILTIAZEM HCL 120 MG CAP.SR.24H PO SCH (10:00)
[2018-11-26] MEDS: FUROSEMIDE 20 MG TABLET PO SCH (10:39)
[2018-11-26] MEDS: ENOXAPARIN SODIUM INJ 40 MG/0.4 ML DISP.SYRIN SUBCUT SCH (10:40)
[2018-11-26] MEDS: POTASSIUM CHLORIDE 10 MEQ CAPSULE.ER PO SCH (10:40)
[2018-11-26] MEDS: FAMOTIDINE 20 MG TABLET PO SCH (10:40)
[2018-11-26] MEDS: DOCUSATE SODIUM 100 MG CAPSULE PO SCH (10:40)
[2018-11-26 14:11] VITALS: BP 128/46
--- NOTE | 2018-11-26 17:59 | PDOC DISCHARGE SUMMARY ---
Impression - Admit/DC Date/PCP Admission Date/Primary Care Provider: 11/20/18 11:51 ASIYA CARUSO MD Discharge Date: 11/26/18 - Discharge Diagnosis (1) Atrial fibrillation Is this a current diagnosis for this admission?: Yes (2) CHF (congestive heart failure) Is this a current diagnosis for this admission?: Yes (3) COPD exacerbation Is this a current diagnosis for this admission?: No - Additional Information Resuscitation Status: Full Code Discharge Diet: Cardiac Discharge Activity: Activity As Tolerated, Balance Activity w/Rest, Weigh Daily Referrals: ASIYA CARUSO MD [Primary Care Provider] - 12/04/18 10:45 am (WITH DR. HARDIN DUE TO DR. CARUSO BEING OUT OF OFFICE.) Prescriptions: Diltiazem HCl [Cardizem Cd 120 mg Capsule] 120 mg PO DAILY #30 cap.sr.24h Apixaban [Eliquis 5 mg Tablet] 5 mg PO BID #60 tablet Home Medications: Albuterol Sulfate [Proair HFA Inhalation Aerosol 8.5 gm MDI] 2 puff IH Q6HP PRN 11/20/18 Buspirone HCl [Buspar 10 mg Tablet] 10 mg PO Q12 11/20/18 Pantoprazole Sodium [Protonix [address] Tablet] 40 mg PO Q6AM 11/20/18 Apixaban [Eliquis 5 mg Tablet] 5 mg PO BID #60 tablet 11/26/18 Diltiazem HCl [Cardizem Cd 120 mg Capsule] 120 mg PO DAILY #30 cap.sr.24h 11/26/18 History of Present Illiness History of Present Illness: SERJIO TY is a 83 year old female who has a 2-day history of increased shortness of breath. Patient was just admitted to the hospital back in September of this year for pneumonia. Patient states at that time she had fever and chills patient states that now for the last 2 nights she is just noticed an increase in shortness of breath and a cough. Patient denies fever chills or sputum production. Cording to the ER physician when the patient presented to the ED her O2 sat was 64% on room air. Patient does not use home O2. Patient denies chest pain. Patient does states she has a history of COPD. She also has a history of atrial fib and esophageal cancer [facility] Course: It seems that initially it was not exactly certain whether or not this was pneumonia, a COPD exacerbation, or heart failure. She had pneumonia a couple of months ago, but she was not having any fever or chills or any symptoms that were like her pneumonia episode other than some shortness of breath. She was not having any wheezing or accessory muscle use. She had an echocardiogram that was done a few months ago that showed a normal EF, some mild grade 1 diastolic dysfunction, and no evidence of pulmonary hypertension. When she did have was a recurrence of her atrial fibrillation. Apparently she had stopped taking her Cardizem several weeks ago because she heard a "horror story" from 1 of her friends about something that happened to them while they were on it. This patient never had any trouble with Cardizem while she was on it. We will put her back on Cardizem and were able to get her heart rate under good control, and this morning she was actually in a sinus rhythm for a period of time on the monitor. What I believe happen is that by not being on her Cardizem, she went in atrial fibrillation and had an uncontrolled rapid ventricular response which put her into some heart failure. We got her heart rate under control and gave her a dose of Lasix her symptoms resolved. I do not think she had pneumonia and I do not think she had a COPD exacerbation. Her heart failure was purely due to her uncontrolled atrial fibrillation and she does not have chronic heart failure. We got her back on Cardizem her rate is well controlled. She is a candidate due to her atrial fibrillation based on her age alone for chronic anticoagulation, and I have given her a prescription for Eliquis. She will follow-up with her primary care doctor Dr. Caruso in approximately 1 week. Her labs and examination were reassuring and she was discharged in good condition. Physical Exam Vital Signs: Temp Pulse Resp BP Pulse Ox 98.2 F 89 17 128/46 H 99 11/26/18 14:10 11/26/18 14:10 11/26/18 14:10 11/26/18 14:10 11/26/18 14:10 Intake & Output 11/25/18 11/26/18 11/27/18 06:59 06:59 06:59 Intake Total 1076 724 Balance 1076 724 Weight 46.1 kg 43.7 kg General appearance: PRESENT: no acute distress, cooperative, disheveled, thin Respiratory exam: PRESENT: clear to auscultation roddy, symmetrical, unlabored. ABSENT: accessory muscle use, chest wall tenderness, crackles, prolonged expiratory phas, rhonchi, tachypnea, wheezes Cardiovascular exam: PRESENT: RRR S1 S2 Pulses: PRESENT: normal carotid pulses Vascular exam: PRESENT: normal capillary refill GI/Abdominal exam: PRESENT: normal bowel sounds, soft. ABSENT: distended, guarding, rebound, tenderness Extremities exam: ABSENT: clubbing, pedal edema Musculoskeletal exam: PRESENT: normal inspection. ABSENT: deformity Neurological exam: PRESENT: alert, awake, oriented to person, oriented to place, oriented to situation Psychiatric exam: PRESENT: appropriate affect, normal mood Skin exam: PRESENT: dry, warm Results Laboratory Results: WBC 5.0 10^3/uL (4.0-10.5) 11/21/18 05:25 RBC 3.57 10^6/uL (3.72-5.28) L 11/21/18 05:25 Hgb 11.8 g/dL (12.0-15.5) L 11/21/18 05:25 Hct 35.1 % (36.0-47.0) L 11/21/18 05:25 MCV 98 fl (80-97) H 11/21/18 05:25 MCH 33.2 pg (27.0-33.4) 11/21/18 05:25 MCHC 33.7 g/dL (32.0-36.0) 11/21/18 05:25 RDW 13.8 % (11.5-14.0) 11/21/18 05:25 Plt Count 274 10^3/uL (150-450) 11/21/18 05:25 Lymph % (Auto) 14.0 % (13-45) 11/21/18 05:25 [place] % (Auto) 7.5 % (3-13) 11/21/18 05:25 Eos % (Auto) 0.0 % (0-6) 11/21/18 05:25 Baso % (Auto) 0.1 % (0-2) 11/21/18 05:25 Absolute Neuts (auto) 3.9 10^3/uL (1.7-8.2) 11/21/18 05:25 Absolute Lymphs (auto) 0.7 10^3/uL (0.5-4.7) 11/21/18 05:25 Absolute Monos (auto) 0.4 10^3/uL (0.1-1.4) 11/21/18 05:25 Absolute Eos (auto) 0.0 10^3/uL (0.0-0.6) 11/21/18 05:25 Absolute Basos (auto) 0.0 10^3/uL (0.0-0.2) 11/21/18 05:25 Seg Neutrophils % 78.4 % (42-78) H 11/21/18 05:25 PT 13.6 SEC (11.4-15.4) 11/20/18 09:42 INR 1.04 11/20/18 09:42 APTT 36.3 SEC (23.5-35.8) H 11/21/18 05:25 Carbonic Acid 1.39 mmol/L (1.05-1.35) H 11/20/18 10:00 HCO3/H2CO3 Ratio 21:1 11/20/18 10:00 ABG pH 7.42 (7.35-7.45) 11/20/18 10:00 ABG pCO2 46.3 mmHg (35-45) H 11/20/18 10:00 ABG pO2 52.2 mmHg (80-100) L 11/20/18 10:00 ABG HCO3 29.2 mmol/L (20-24) H 11/20/18 10:00 ABG Total CO2 30.6 mmol/L (21-25) H 11/20/18 10:00 ABG O2 Saturation 87.2 % (94-98) L 11/20/18 10:00 ABG Base Excess 3.9 mmol/L 11/20/18 10:00 FiO2 4L 11/20/18 10:00 Sodium 133.1 mmol/L (137-145) L 11/24/18 05:21 Potassium 3.6 mmol/L (3.6-5.0) 11/24/18 05:21 Chloride 94 mmol/L (98-107) L 11/24/18 05:21 Carbon Dioxide 32 mmol/L (22-30) H 11/24/18 05:21 Anion Gap 7 (5-19) 11/24/18 05:21 BUN 6 mg/dL (7-20) L 11/24/18 05:21 Creatinine 0.58 mg/dL (0.52-1.25) 11/24/18 05:21 Est GFR ( Amer) > 60 (>60) 11/24/18 05:21 Est GFR (MDRD) Non-Af > 60 (>60) 11/24/18 05:21 Glucose 85 mg/dL (75-110) 11/24/18 05:21 Lactic Acid 1.1 mmol/L (0.7-2.1) 11/20/18 09:42 Calcium 8.7 mg/dL (8.4-10.2) 11/24/18 05:21 Total Bilirubin 0.4 mg/dL (0.2-1.3) 11/20/18 09:42 Direct Bilirubin 0.1 mg/dL (0.0-0.4) 11/20/18 09:42 Neonat Total Bilirubin Not Reportable 11/20/18 09:42 Neonat Direct Bilirubin Not Reportable 11/20/18 09:42 Neonat Indirect Bili Not Reportable 11/20/18 09:42 AST 25 U/L (14-36) 11/20/18 09:42 ALT 9 U/L (<35) 11/20/18 09:42 Alkaline Phosphatase 107 U/L (38-126) 11/20/18 09:42 NT-Pro-B Natriuret Pep 1310 pg/mL (<450) H 11/24/18 05:21 Total Protein 6.3 g/dL (6.3-8.2) 11/20/18 09:42 Albumin 3.3 g/dL (3.5-5.0) L 11/20/18 09:42 Urine Color STRAW 11/20/18 21:00 Urine Appearance CLEAR 11/20/18 21:00 Urine pH 6.0 (5.0-9.0) 11/20/18 21:00 Ur Specific [place] 1.008 11/20/18 21:00 Urine Protein NEGATIVE mg/dL (NEGATIVE) 11/20/18 21:00 Urine Glucose (UA) NEGATIVE mg/dL (NEGATIVE) 11/20/18 21:00 Urine Ketones NEGATIVE mg/dL (NEGATIVE) 11/20/18 21:00 Urine Blood NEGATIVE (NEGATIVE) 11/20/18 21:00 Urine Nitrite NEGATIVE (NEGATIVE) 11/20/18 21:00 Urine Bilirubin NEGATIVE (NEGATIVE) 11/20/18 21:00 Urine Urobilinogen NEGATIVE mg/dL (<2.0) 11/20/18 21:00 Ur Leukocyte Esterase NEGATIVE (NEGATIVE) 11/20/18 21:00 Urine WBC (Auto) 0 /HPF 11/20/18 21:00 Urine RBC (Auto) 1 /HPF 11/20/18 21:00 Squamous Epi Cells Auto 1 /HPF 11/20/18 21:00 Urine Mucus (Auto) RARE /LPF 11/20/18 21:00 Urine Ascorbic Acid NEGATIVE (NEGATIVE) 11/20/18 21:00 11/20/18 11/22/18 11/23/18 09:42 10:57 07:50 NT-Pro-B Natriuret Pep 913 H 2200 H 1860 H 11/24/18 05:21 NT-Pro-B Natriuret Pep 1310 H Impressions: Chest X-Ray 11/20/18 09:31 IMPRESSION: Cannot exclude left lower lobe pneumonia superimposed upon chronic changes. Small pleural effusions. Chest X-Ray 11/22/18 00:00 IMPRESSION: Trace Bilateral pleural effusions new compared to September. Stable lung parenchymal scarring and interstitial changes/ bronchiectasis. Plan Time Spent: Greater than 30 Minutes Stroke Is this a Stroke Patient?: No Acute Heart Failure - Is this a Heart Failure Patient?: No
== END 2018-11-26 14:53 | disposition home or self-care (01) | DRG 310 ==
LOC: ER 09:14 → EH 11:51 → 4S 16:20
PROVIDERS: ADMIT Family Medicine; ATTEND Family Medicine
DX: I48.91 Unspecified atrial fibrillation (principal); I50.9 Heart failure, unspecified; T46.1X6A Underdosing of calcium-channel blockers, initial encounter; Z91.128 Patient's intentional underdosing of medication regimen for other reason; Z79.02 Long term (current) use of antithrombotics/antiplatelets; J44.9 Chronic obstructive pulmonary disease, unspecified; E78.5 Hyperlipidemia, unspecified; Z85.01 Personal history of malignant neoplasm of esophagus; Z87.891 Personal history of nicotine dependence; Z90.79 Acquired absence of other genital organ(s); Z88.2 Allergy status to sulfonamides; Z79.51 Long term (current) use of inhaled steroids; Z80.0 Family history of malignant neoplasm of digestive organs; Z87.01 Personal history of pneumonia (recurrent)
CPT/HCPCS: 36415; 71045; 80048; 80053; 81001; 82803; 83605; 83880; 85025; 85610; 85730; 87040; 93005; 93010; 94640; 96374; 99291; J0456; J0696; J1650; J1940; J2930; J3490; J7030; J7060; J7620

== ENCOUNTER 2020-01-26 17:13 | Emergency (ER) | payer MEDICARE ==
[2020-01-26 17:25] VITALS: BP 126/68
== END 2020-01-26 18:32 | disposition left against medical advice (07) ==
LOC: ER 17:13
DX: Z53.21 Procedure and treatment not carried out due to patient leaving prior to being seen by health care provider (principal)